=== PATIENT | male | born 1950 | race Hispanic/Latino ===

== ENCOUNTER 2019-01-18 06:47 | Day surgery (SDC) | payer OTHER ==
--- NOTE | 2019-01-17 14:04 | RAD REPORT ---
EXAM DESCRIPTION: RAD - Chest Pa And Lat (2 Views) - 01/17/2019 1:54 pm CLINICAL HISTORY: preop Chest pain. COMPARISON: Chest Single View dated 09/29/2017; Chest Single View dated 09/23/2017; Chest Single Vie w dated 09/25/2016; CHEST SINGLE VIEW dated 09/14/2014 FINDINGS: The lungs are clear. The heart is normal in size. No displaced fractures. Sternotomy wires present. IMPRESSION: No acute or concerning finding suspected.
[2019-01-17 15:06] LABS: Absolute Lymphocytes (CBC) 2.2 K/uL (0.7-4.9); Absolute Monocytes 0.7 K/uL (0.1-1.3); Absolute Neutrophil 5.9 K/uL (1.8-8.0); Basophils % 0.5 % (0-1.3); Eosinophils % 3.4 % (0-4.4); Hematocrit 40.5 % (39.6-49.0); Lymphocytes % 23.8 % (15.3-44.8); MPV 8.7 fL (7.6-11.3); Monocytes % 7.5 % (3.3-12.3); RBC Red Blood Cell Count 4.58 M/uL (4.33-5.43)
[2019-01-17 15:10] LABS: Protime INR 1.07
[2019-01-17 15:17] LABS: Potassium 4.1 mmol/L (3.5-5.1)
--- OUTSIDE RECORDS SUMMARY | 2019-01-18 06:49 | XMS REPORT ---
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 Problem History of TIA (transient ischemic Z86.73 Active attack) Problem Chronic kidney disease, stage 2 N18.2 Active (mild) Problem Erectile dysfunction, unspecified N52.9 Active erectile dysfunction type Problem Sinus disorder J34.9 Active Problem Type 2 diabetes mellitus with E11.65 Active hyperglycemia Assessment History of TIA (transient ischemic Z86.73 Active attack) Assessment Type 2 diabetes mellitus with E11.65 Active hyperglycemia Assessment Hyperlipidemia, unspecified E78.5 Active hyperlipidemia type Assessment Chronic kidney disease (CKD) stage N18.2 Active G2/A1, mildly decreased glomerular filtration rate (GFR) between 60-89 mL/min/1.73 square meter and albuminuria creatinine ratio less than 30 mg/g Assessment half-way current use of insulin Z79.4 Active Assessment Accelerated essential hypertension I10 Active Assessment Cardiovascular system problem I25.10 Active Medications Medication Code Code Instructions Start End Status Dosage System Date Date Plavix [facility] 84898040393 75 MG Orally Active 1 tablet Once a day Lipitor [facility] 56915885824 20 MG Orally Active 1 tablet Once a day Trulicity [facility] 17221622506 0.75mg/0.5ml Active one SQ once a week injection Hydrochlorothiazide [facility] 98407470342 25 MG Orally Active 1 tablet Once a day in the morning Metformin HCl [facility] [address]-19 1000 MG Orally Active 1 tablet Twice a day with a meal Levemir FlexTouch [facility] [address]-28 100 UNIT/ML Active 50 units Subcutaneous at bedtime Niaspan [facility] 24491191567 1000 MG Orally Active 1 tablet Once a day at bedtime Benazepril HCl [facility] 00302658869 40 MG Orally Active 1 tablet Once a day Norvasc [facility] 84602047563 5 MG Orally Active 1 tablet Once a day Jardiance [facility] 44154991913 10 MG Orally Active 1 tablet Once a day Results No Known Results Summary Purpose eClinicalWorks Submission
--- OUTSIDE RECORDS SUMMARY | 2019-01-18 06:49 | XMS REPORT ---
:1950 Author Organization eClinicalWorks Care Team Providers Name Role Phone Abhilash Galvin Provider Role Unavailable Allergies, Adverse Reactions, Alerts Substance Reaction Event Type N.K.D.A. Info Not Available Non Drug Allergy Problems Problem Type Condition Code Onset Dates Condition Status Problem Chronic kidney disease (CKD) stage N18.2 Active G2/A1, mildly decreased glomerular filtration rate (GFR) between 60-89 mL/min/1.73 square meter and albuminuria creatinine ratio less than 30 mg/g Problem Hyperlipidemia, unspecified E78.5 Active hyperlipidemia type Problem Cardiovascular system problem I25.10 Active Problem Essential (primary) hypertension I10 Active Problem [facility] current use of insulin Z79.4 Active Problem History of TIA (transient ischemic Z86.73 Active attack) Problem Chronic kidney disease, stage 2 N18.2 Active (mild) Problem Erectile dysfunction, unspecified N52.9 Active erectile dysfunction type Problem Sinus disorder J34.9 Active Problem Type 2 diabetes mellitus with E11.65 Active hyperglycemia Assessment Type 2 diabetes mellitus with E11.65 Active hyperglycemia Assessment Essential (primary) hypertension I10 Active Assessment History of TIA (transient ischemic Z86.73 Active attack) Assessment Chronic kidney disease, stage 2 N18.2 Active (mild) Assessment Hyperlipidemia, unspecified E78.5 Active hyperlipidemia type Medications Medication Code Code Instructions Start End Status Dosage System Date Date Norvasc [facility] 09150927966 5 MG Orally Inactive 1 tablet Once a day Levemir FlexTouch [facility] 77072208245 100 UNIT/ML Active 50 units Subcutaneous at bedtime Benazepril HCl ND 28416428313 40 MG Orally Active 1 tablet Once a day Aspirin ND 16235542361 81 MG Orally Active 1 tablet Once a day Niaspan [facility] 24324438465 1000 MG Orally Active 1 tablet Once a day at bedtime Metoprolol Succinate ND 91097244772 25 MG Orally Active 1 tablet ER Once a day Plavix [facility] 49220753646 75 MG Active TAKE ONE TABLET BY MOUTH DAILY Hydrochlorothiazide [facility] 66916651324 25 MG Orally Active 1 tablet Once a day in the morning Trulicity [facility] 49732267374 0.75mg/0.5ml Active one SQ once a week injection Metformin HCl [facility] 20931201806 1000 MG Orally Active 1 tablet Twice a day with a meal Jardiance [facility] 55205181511 10 MG Orally Active 1 tablet Once a day Amlodipine Besylate [facility] 85017827133 10 MG Orally Aug Active 1 tablet Once a day 2017 Lipitor [facility] 89136894398 20 MG Orally Active 1 tablet Once a day Results No Known Results Summary Purpose eClinicalWorks Submission
--- OUTSIDE RECORDS SUMMARY | 2019-01-18 06:49 | XMS REPORT ---
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
--- OUTSIDE RECORDS SUMMARY | 2019-01-18 06:49 | XMS REPORT ---
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 88615692325 0.75mg/0.5ml Active one SQ once a week injection Hydrochlorothiazide [facility] 58039231256 25 MG Orally Active 1 tablet Once a day in the morning Norvasc [facility] 04858744265 5 MG Orally Active 1 tablet Once a day Bydureon [facility] 12335957524 2 SC Once a Milad Active 1 Vial 2015 Benazepril HCl [facility] 67469825188 40 MG Orally Active 1 tablet Once a day Plavix [facility] 96140131415 75 MG Orally Active 1 tablet Once a day Levemir FlexTouch [facility] [address]-57 100 UNIT/ML Active 50 units Subcutaneous at bedtime Jardiance [facility] 14647468812 10 MG Orally Active 1 tablet Once a day Metformin HCl [facility] [address]-20 1000 MG Orally Active 1 tablet Twice a day with a meal Niaspan [facility] 65730362374 1000 MG Orally Active 1 tablet Once a day at bedtime Lipitor [facility] 61830767619 20 MG Orally Active 1 tablet Once a day Results No Known Results Summary Purpose eClinicalWorks Submission
--- OUTSIDE RECORDS SUMMARY | 2019-01-18 06:50 | XMS REPORT ---
:1950 Author Organization eClinicalWorks Care Team Providers Name Role Phone Abhilash Galvin Provider Role Unavailable Allergies, Adverse Reactions, Alerts Substance Reaction Event Type N.K.D.A. 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 Problem Influenza A J10.1 Active Problem Essential (primary) hypertension I10 Active Problem Type 2 diabetes mellitus with E11.65 Active hyperglycemia Problem Sinus disorder J34.9 Active Problem History of TIA (transient ischemic Z86.73 Active attack) Assessment History of TIA (transient ischemic Z86.73 Active attack) Assessment [facility] current use of insulin Z79.4 Active Assessment Hyperlipidemia, unspecified E78.5 Active hyperlipidemia type Assessment Type 2 diabetes mellitus with E11.65 Active hyperglycemia Problem Chronic kidney disease (CKD) stage N18.2 Active G2/A1, mildly decreased glomerular filtration rate (GFR) between 60-89 mL/min/1.73 square meter and albuminuria creatinine ratio less than 30 mg/g Assessment Cardiovascular system problem I25.10 Active Problem Cardiovascular system problem I25.10 Active Medications Medication Code Code Instructions Start End Status Dosage System Date Date Jardiance [facility] 88380559343 10 MG Orally Active 1 tablet Once a day Metoprolol Succinate ND 68390942996 25 MG Orally Active 1 tablet ER Once a day Niaspan [facility] 29503075603 1000 MG Orally Active 1 tablet Once a day at bedtime Benazepril HCl [facility] 52458269210 40 MG Orally Active 1 tablet Once a day Lipitor ND 50638656267 20 MG Orally Active 1 tablet Once a day Aspirin ND 42404776973 81 MG Orally Active 1 tablet Once a day Levemir FlexTouch [facility] 37847939369 100 unit/mL Active INJECT 50 UNITS UNDER THE SKIN EVERY NIGHT AT BEDTIME Plavix [facility] 85226669524 75 MG Active TAKE ONE TABLET BY MOUTH DAILY Hydrochlorothiazide [facility] 00230913830 25 MG Orally Active 1 tablet Once a day in the morning Amlodipine Besylate [facility] 86485275424 10 MG Orally May 31, Active 1 tablet Once a day [address] [facility] 17983569838 1000 MG Orally Active 1 tablet Twice a day with a meal Tamiflu [facility] 91787714810 75 MG Orally Nov 22, Active 1 capsule Twice a day 2018 Results No Known Results Summary Purpose eClinicalWorks Submission
--- OUTSIDE RECORDS SUMMARY | 2019-01-18 06:50 | XMS REPORT ---
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 Active Assessment Hyperlipidemia, unspecified E78.5 Active hyperlipidemia type Assessment Essential (primary) hypertension I10 Active Problem Chronic kidney disease (CKD) stage N18.2 Active G2/A1, mildly decreased glomerular filtration rate (GFR) between 60-89 mL/min/1.73 square meter and albuminuria creatinine ratio less than 30 mg/g Assessment Chronic kidney disease, stage 2 N18.2 Active (mild) Problem Cardiovascular system problem I25.10 Active Medications Medication Code Code Instructions Start End Status Dosage System Date Date Jardiance [facility][NOTE 3] 35042586473 10 MG Orally Active 1 tablet Once a day Metoprolol Succinate ND 29789705848 25 MG Orally Active 1 tablet ER Once a day Amlodipine Besylate ND 27061548125 10 MG Orally May 31, Active 1 tablet Once a day 2017 Hydrochlorothiazide [facility][NOTE 3] 03862836170 25 MG Orally Active 1 tablet Once a day in the morning Metformin HCl ND 53648825389 1000 MG Orally Active 1 tablet Twice a day with a meal Plavix [facility][NOTE 3] 85757310765 75 MG Active TAKE ONE TABLET BY MOUTH DAILY Aspirin [facility][NOTE 3] 36730740547 81 MG Orally Active 1 tablet Once a day Tamiflu [facility]NOTE 3] 84282144350 75 MG Orally Nov 22, Active 1 capsule Twice a day 2018 Benazepril HCl [facility][NOTE 3] 74384816914 40 MG Orally Active 1 tablet Once a day Niaspan [facility]NOTE 3] 12261183668 1000 MG Orally Active 1 tablet Once a day at bedtime Lipitor [facility]NOTE 3] 83826709276 20 MG Orally Active 1 tablet Once a day Levemir FlexTouch [facility]NOTE 3] 11017593611 100 unit/mL Active INJECT 50 UNITS UNDER THE SKIN EVERY NIGHT AT BEDTIME Results No Known Results Summary Purpose eClinicalWorks Submission
--- OUTSIDE RECORDS SUMMARY | 2019-01-18 06:50 | XMS REPORT ---
:1950 Author Organization eClinicalWorks Care Team Providers Name Role Phone Dary Camacho Provider Role Unavailable Allergies, Adverse Reactions, Alerts Substance Reaction Event Type N.K.D.A. Info Not Available Non Drug Allergy Problems Problem Type Condition Code Onset Dates Condition Status Problem Cardiovascular system problem I25.10 Active Problem Erectile dysfunction, unspecified N52.9 Active erectile dysfunction type Problem Hyperlipidemia, unspecified E78.5 Active hyperlipidemia type Assessment Influenza A J10.1 Active Problem Chronic kidney disease (CKD) stage N18.2 Active G2/A1, mildly decreased glomerular filtration rate (GFR) between 60-89 mL/min/1.73 square meter and albuminuria creatinine ratio less than 30 mg/g Problem Type 2 diabetes mellitus with E11.65 Active hyperglycemia Problem Chronic kidney disease, stage 2 N18.2 Active (mild) Problem Influenza A J10.1 Active Problem 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.4 Active Problem Sinus disorder J34.9 Active Problem History of TIA (transient ischemic Z86.73 Active attack) Problem Essential (primary) hypertension I10 Active Medications Medication Code Code Instructions Start End Status Dosage System Date Date Metoprolol Succinate [facility] 50445001392 25 MG Orally Active 1 tablet ER Once a day Plavix [facility] 52891521059 75 MG Active TAKE ONE TABLET BY MOUTH DAILY Tamiflu ND 62550778805 75 MG Orally Nov 22, Active 1 capsule Twice a day 2018 Niaspan [facility] 23034547053 1000 MG Orally Active 1 tablet Once a day at bedtime Lipitor ND 73150053184 20 MG Orally Active 1 tablet Once a day Jardiance [facility] 02338710642 10 MG Orally Active 1 tablet Once a day Metformin HCl ND 01084618784 1000 MG Orally Active 1 tablet Twice a day with a meal Levemir FlexTouch [facility] 85579690328 100 unit/mL Active INJECT 50 UNITS UNDER THE SKIN EVERY NIGHT AT BEDTIME Amlodipine Besylate ND 94835848817 10 MG Orally May 31, Active 1 tablet Once a day 2018 Hydrochlorothiazide [facility] 75380798950 25 MG Orally Active 1 tablet Once a day in the morning Benazepril HCl [facility] 70298161402 40 MG Orally Active 1 tablet Once a day Aspirin [facility] 06248165375 81 MG Orally Active 1 tablet Once a day Results Name Result Date Reference Range Unit Abnormality Flag FLU TEST ----A POS [id number] ----B NEG [id number] Summary Purpose eClinicalWorks Submission
[2019-01-18] MEDS ORDERED: HEPA 1000U/500MLS 2,000 UNIT/1,000 ML BAG IV ONE (07:07)
[2019-01-18] MEDS ORDERED: LIDOCAINE 1% MPF 30 ML VIAL ONE (07:07)
[2019-01-18] MEDS ORDERED: NA CHLORIDE 0.9% 500 ML ONE (07:31)
[2019-01-18] MEDS ORDERED: MIDAZOLAM HCL 2 MG/2 ML INJ ONE (08:04)
[2019-01-18] MEDS ORDERED: NA CHLORIDE 0.9% 0 ML ONE (08:05)
[2019-01-18] MEDS ORDERED: ATROPINE SULF 1 MG/10 ML SYR IV ONE (08:05)
[2019-01-18] MEDS ORDERED: FENTANYL CITR 100 MCG/2 ML ONE (08:05)
[2019-01-18 11:11] VITALS: BP 136/65; O2SAT 98
[2019-01-18 11:12] VITALS: TEMP 97.6
--- NOTE | 2019-01-18 20:41 | OP ---
Surgeon: Carl Carrington MD Procedures: Left heart catheterization, coronary angiography, angiography of saphenous vein grafts, left internal mammary artery, and left ventricle. Procedure Findings: The patient has progression of his coronary heart disease since his last heart c atheterization, September 2017. He has occlusion of the LAD, mid. It may not be totally occluded, bu t there may be competitive flow that makes it look occluded. The circumflex is totally occluded. Th ere is RASHEED grade 1 flow to the distal part of the circumflex. The total segment without any contras t and it is more than 3 cm small food. The right coronary artery has an 80% proximal lesion distally . It is totally occluded. There is a graft to the PDA beyond the total occlusion. The graft to the RCA is widely patent. No stenosis. The patient had a stent in his LAD distal to the CHARLES. The LOPEZ A is widely patent, no stenosis, normal flow. Left ventricular ejection fraction normal with no wall motion abnormality. Left ventricular end-diastolic pressure was 17. Procedure In Detail: The patient was brought to the cardiac laboratory assistant in a fasting state, sedated wit h Versed and fentanyl, prepared and draped in usual sterile fashion. Right femoral artery was used. The artery was entered using an 18-gauge needle, cannulated with a short J-wire. 4-Vietnamese sheath wa s placed and flushed. We used the 4-Vietnamese sheath for the rest of the procedure. At the end of the procedure, a sheath shot was done. Adequate anatomy was seen for Angio-Seal closure device, this was deployed successfully. We used a JL4 for the left coronary; JR4 for the right coronary, the sapheno us vein graft, and the internal mammary; angled pigtail for the left ventricle. No aortic valve grad ient on pullback. Complications From The Procedure: None. Estimated Blood Loss: 10 cc. Commercial Teller: Jaime Cazares. GENOVEVA/ADELINE Voice ID: [id number] Report ID: [id number]
== END 2019-01-18 11:13 | disposition home or self-care (01) ==
LOC: CCL 06:47
PROVIDERS: ATTEND Internal Medicine
DX: I25.10 Atherosclerotic heart disease of native coronary artery without angina pectoris (principal); I10 Essential (primary) hypertension; E78.2 Mixed hyperlipidemia; E11.9 Type 2 diabetes mellitus without complications; Z79.4 Long term (current) use of insulin; Z79.82 Long term (current) use of aspirin; Z79.899 Other long term (current) drug therapy; Z95.1 Presence of aortocoronary bypass graft
CPT/HCPCS: 85025; 80048; 36415; 85610; 82962 ×2; 85730; 71046; 93459; C1893; C1760; J2250; J3010; J0583

== ENCOUNTER 2019-07-31 19:59 | Observation (INO) | payer OTHER ==
[2019-07-31 20:55] LABS: Absolute Lymphocytes (CBC) 2.3 K/uL (0.7-4.9); Basophils % 0.6 % (0-1.3); Hematocrit 41.9 % (39.6-49.0); Lymphocytes % 23.4 % (15.3-44.8); RBC Red Blood Cell Count 4.77 M/uL (4.33-5.43)
[2019-07-31 20:56] LABS: Protime INR 1.07
[2019-07-31] MEDS ORDERED: NA CHLORIDE 0.9% 1,000 ML ONE (21:10)
[2019-07-31] MEDS ORDERED: FOLIC ACID 5 MG/ML VIAL ONE (21:11)
[2019-07-31 21:12] LABS: ALT/SGPT 16 U/L (12-78); AST/SGOT 14 U/L (15-37); Albumin 3.9 g/dL (3.4-5.0); Alkaline Phosphatase 76 U/L (45-117); BUN Blood Urea Nitrogen 19 mg/dL (7-18); Bicarbonate 31 mmol/L (21-32); Bilirubin Direct 0.1 mg/dL (0-0.2); Bilirubin Total 0.4 mg/dL (0.2-1.0); Glucose Level 166 mg/dL (74-106); NT PRO-BNP 118 pg/mL (<125); Potassium 3.4 mmol/L (3.5-5.1); Protein, Total 7.8 g/dL (6.4-8.2); Sodium Level 135 mmol/L (136-145); Troponin (Emerg Dept Use Only) < 0.02 ng/mL (0.0-0.045)
[2019-07-31] MEDS ORDERED: ASPIRIN 81 MG CHEWABLE TABLET ONE (21:31)
--- NOTE | 2019-07-31 21:47 | EDPHYS ---
Physician Documentation [facility] Name: Justus Tracey Age: 68 yrs Sex: Male : 1950 Arrival Date: 07/31/2019 Time: 20:02 Bed 8 Private MD: Abhilash Galvin ED Physician Missael Díaz HPI: 07/31 21:24 This 68 yrs old Male presents to ER via Ambulatory with complaints of History gonzalo of stroke, Numbness Of Face, sIDE NUMBNESS. 21:24 The patient's problem is reported as paresthesias, in left upper extremity, in left gonzalo lower extremity, in left side of face. Onset: The symptoms/episode began/occurred yesterday. Duration: The episode is continuous, The episodes are intermittent. Duration: worse than better, now better. Context: the episode(s) was witnessed, by family, symptoms became apparent yesterday. The symptoms are alleviated by nothing. The symptoms are aggravated by nothing. Associated signs and symptoms: The patient has no apparent associated signs or symptoms. Severity of symptoms: At their worst the symptoms were mild in the emergency department the symptoms are unchanged. Patient's baseline: Neuro: alert and fully oriented. Historical: - Allergies: 20:50 No Known Allergies; aa1 - Home Meds: 20:50 metformin 1,000 mg oral TG24 1 tab once daily [Active]; Plavix 75 mg Oral tab 1 tab aa1 once daily [Active]; atorvastatin 80 mg oral tab 1 tab once daily [Active]; ranolazine oral oral 1 tab 2 times per day [Active]; metoprolol tartrate 25 mg Oral tab 1 tab 2 times per day [Active]; benazepril 40 mg oral tab 1 tab once daily [Active]; chlorthalidone 25 mg Oral tab 1 tab once daily [Active]; ozempic 0.25-0.5 0.25 mg weekly [Active]; - PMHx: 20:50 CVA; Diabetes - NIDDM; Hyperlipidemia; Hypertension; aa1 - PSHx: 20:50 Heart stents; CABG; splenectomy; aa1 - Immunization history:: Flu vaccine is not up to date. - Social history:: Smoking status: Patient/guardian denies using tobacco. - Ebola Screening: : No symptoms or risks identified at this time. - Family history:: not pertinent. ROS: 21:24 Constitutional: Negative for fever, chills, and weight loss, Eyes: Negative for injury, gonzalo pain, redness, and discharge, ENT: Negative for injury, pain, and discharge, Neck: Negative for injury, pain, and swelling, Cardiovascular: Negative for chest pain, palpitations, and edema, Respiratory: Negative for shortness of breath, cough, wheezing, and pleuritic chest pain, Abdomen/GI: Negative for abdominal pain, nausea, vomiting, diarrhea, and constipation, Back: Negative for injury and pain, : Negative for injury, bleeding, discharge, and swelling, MS/Extremity: Negative for injury and deformity, Skin: Negative for injury, rash, and discoloration, Psych: Negative for depression, anxiety, suicide ideation, homicidal ideation, and hallucinations, Allergy/Immunology: Negative for hives, rash, and allergies, Endocrine: Negative for neck swelling, polydipsia, polyuria, polyphagia, and marked weight changes, Hematologic/Lymphatic: Negative for swollen nodes, abnormal bleeding, and unusual bruising. 21:24 Neuro: Positive for numbness, tingling, weakness, of the face, left arm and left leg. Exam: 21:24 Constitutional: This is a well developed, well nourished patient who is awake, alert, gonzalo and in no acute distress. Head/Face: Normocephalic, atraumatic. Eyes: Pupils equal round and reactive to light, extra-ocular motions intact. Lids and lashes normal. Conjunctiva and sclera are non-icteric and not injected. Cornea within normal limits. Periorbital areas with no swelling, redness, or edema. ENT: Nares patent. No nasal discharge, no septal abnormalities noted. Tympanic membranes are normal and external auditory canals are clear. Oropharynx with no redness, swelling, or masses, exudates, or evidence of obstruction, uvula midline. Mucous membranes moist. Neck: Trachea midline, no thyromegaly or masses palpated, and no cervical lymphadenopathy. Supple, full range of motion without nuchal rigidity, or vertebral point tenderness. No Meningismus. Chest/axilla: Normal chest wall appearance and motion. Nontender with no deformity. No lesions are appreciated. Cardiovascular: Regular rate and rhythm with a normal S1 and S2. No gallops, murmurs, or rubs. Normal PMI, no JVD. No pulse deficits. Respiratory: Lungs have equal breath sounds bilaterally, clear to auscultation and percussion. No rales, rhonchi or wheezes noted. No increased work of breathing, no retractions or nasal flaring. Abdomen/GI: Soft, non-tender, with normal bowel sounds. No distension or tympany. No guarding or rebound. No evidence of tenderness throughout. Back: No spinal tenderness. No costovertebral tenderness. Full range of motion. Male : Normal genitalia with no discharge or lesions. Skin: Warm, dry with normal turgor. Normal color with no rashes, no lesions, and no evidence of cellulitis. MS/ Extremity: Pulses equal, no cyanosis. Neurovascular intact. Full, normal range of motion. Neuro: Awake and alert, GCS 15, oriented to person, place, time, and situation. Cranial nerves II-XII grossly intact. Motor strength 5/5 in all extremities. Sensory grossly intact. Cerebellar exam normal. Normal gait. Psych: Awake, alert, with orientation to person, place and time. Behavior, mood, and affect are within normal limits. 21:29 Radiologist reports: see report [facility] Vital Signs: 20:25 BP 169 / 69; Pulse 61; Resp 18; Temp 98.0; Pulse Ox 98% on R/A; Weight 81.65 kg; Height aa1 5 ft. 6 in. (167.64 cm); Pain 0/10; 21:50 BP 159 / 69; Pulse 58; Resp 18; Pulse Ox 99% on R/A; ea 22:59 BP 147 / 71; Pulse 55; Resp 18; Pulse Ox 99% on R/A; ea 20:25 Body Mass Index 29.05 (81.65 kg, 167.64 cm) aa NIH Stroke Scale Scores: 21:24 NIHSS Score: 1 gonzalo MDM: 20:50 Patient medically screened. [facility] 21:28 Data reviewed: vital signs, nurses notes, lab test result(s), EKG, radiologic studies, [facility] CT scan, plain films. 07/31 20:34 Order name: Basic Metabolic Panel; Complete Time: 21:24 aa1 07/31 20:34 Order name: CBC with Diff; Complete Time: 21:24 aa1 07/31 20:34 Order name: LFT's; Complete Time: 21:24 aa1 07/31 20:34 Order name: Magnesium; Complete Time: 21:24 07/31 20:34 Order name: NT PRO-BNP; Complete Time: 21:24 07/31 20:34 Order name: PT-INR; Complete Time: 21:24 07/31 20:34 Order name: Troponin (emerg Dept Use Only); Complete Time: 21:24 07/31 20:34 Order name: XRAY Chest (1 view) 07/31 20:34 Order name: EKG; Complete Time: 20:35 07/31 20:34 Order name: CT Head Brain wo Cont 07/31 20:34 Order name: Cardiac monitoring; Complete Time: 20:35 07/31 20:34 Order name: EKG - Nurse/Tech; Complete Time: 20:35 07/31 20:34 Order name: IV Saline Lock; Complete Time: 21:05 [facility] 07/31 20:34 Order name: Labs collected and sent; Complete Time: 20:52 [facility] 07/31 20:34 Order name: O2 Per Protocol; Complete Time: 20:35 07/31 20:34 Order name: O2 Sat Monitoring; Complete Time: 20:35 07/31 20:52 Order name: Urine Dipstick-Ancillary (obtain specimen); Complete Time: 21:50 [facility] 07/31 21:39 Order name: CONS Physician Consult EDMS Administered Medications: 21:14 Drug: NS 0.9% 1000 ml Route: IV; Rate: 1 bolus; Site: right antecubital; ca1 22:00 Follow up: Response: No adverse reaction; IV Intake: 1000ml ea 21:14 Drug: foLIC Acid 1 mg Route: IVPB; Site: right antecubital; ca1 22:00 Follow up: IV Status: Completed infusion ea 21:33 Drug: Aspirin Chewable Tablet 81 mg Route: PO; ca1 21:50 Follow up: Response: No adverse reaction ca1 22:32 Drug: Potassium Effervescent Tablet 25 mEq Route: PO; wh 23:20 Follow up: Response: No adverse reaction ea Disposition: 07/31/19 21:46 Hospitalization ordered by Abhilash Galvin for Inpatient Admission. Preliminary diagnosis are Cerebral infarction - /TIA, Type 2 diabetes mellitus, Essential (primary) hypertension, Hypokalemia. - Bed requested for Telemetry/MedSurg (Inpatient). - Status is Inpatient Admission. ea - Condition is Stable. - Problem is new. - Symptoms have improved. UTI on Admission? No NIH Stroke Scale - NIH Stroke Score Date: 07/31/2019 Time: 21:24 Total Score = 1 1a. Level of Consciousness (LOC) - 0(Alert) 1b. Level of Consciousness (LOC) (Year \T\ Age) - 0(Both) 1c. LOC Commands (Open \T\ Closes Eyes/Pipe Line Maintenance Supervisor) - 0(Both) 2. Best Gaze (Lateral Gaze Paresis) - 0(Normal) 3. Visual Field Loss - 0(No visual loss) 4. Facial Palsy - 0(Normal) 5a. Left Arm: Motor (10-second hold) - 0(No drift) 5b. Right Arm: Motor (10-second hold) - 0(No drift) 6a. Left Leg: Motor (5-second hold - always test supine) - 0(No drift) 6b. Right Leg: Motor (5-second hold - always test supine) - 0(No drift) 7. Limb Ataxia (finger/nose \T\ heel/berry - test with eyes open) - 0(Absent) 8. Sensory Loss (pinprick arms/legs/face) - 1(Mild to moderate loss) 9. Best Language: Aphasia (description/naming/reading) - 0(No aphasia) 10. Dysarthria (speech clarity - read or repeat words) - 0(Normal) 11. Extinction and Inattention (visual/tactile/auditory/spatial/personal) - 0(No abnormality) Initials: gonzalo Signatures: Dispatcher [employer] EDMS Christine Barros RN RN aa1 Missael Díaz MD MD cha Garcia, Cindy RN RN cg Bettie Madera RN RN ea Habalo, Winsy wh Acob, Cheryl RN RN ca1 Corrections: (The following items were deleted from the chart) 21:49 21:46 Hospitalization Ordered by Abhilash Galvin MD for Observation. Preliminary cg diagnosis is Cerebral infarction - /TIA; Type 2 diabetes mellitus; Essential (primary) hypertension. Bed requested for Telemetry/MedSurg (observation). Status is Observation. Condition is Stable. Problem is new. Symptoms have improved. UTI on Admission? No. gonzalo 21:50 21:49 07/31/2019 21:46 Hospitalization Ordered by Abhilash Galvin MD for gonzalo Observation. Preliminary diagnosis is Cerebral infarction - /TIA; Type 2 diabetes mellitus; Essential (primary) hypertension. Bed requested for Telemetry/MedSurg (observation). Status is Observation. Condition is Stable. Problem is new. Symptoms have improved. UTI on Admission? No. 22:16 21:50 07/31/2019 21:46 Hospitalization Ordered by Abhilash Galvin MD for Inpatient cg Admission. Preliminary diagnosis is Cerebral infarction - /TIA; Type 2 diabetes mellitus; Essential (primary) hypertension. Bed requested for Telemetry/MedSurg (Inpatient). Status is Inpatient Admission. Condition is Stable. Problem is new. Symptoms have improved. UTI on Admission? No. gonzalo 22:28 22:16 07/31/2019 21:46 Hospitalization Ordered by Abhilash Galvin MD for Inpatient gonzalo Admission. Preliminary diagnosis is Cerebral infarction - /TIA; Type 2 diabetes mellitus; Essential (primary) hypertension. Bed requested for Telemetry/MedSurg (Inpatient). Status is Inpatient Admission. Condition is Stable. Problem is new. Symptoms have improved. UTI on Admission? No. 23:19 22:28 07/31/2019 21:46 Hospitalization Ordered by Abhilash Galvin MD for Inpatient ea Admission. Preliminary diagnosis is Cerebral infarction - /TIA; Type 2 diabetes mellitus; Essential (primary) hypertension; Hypokalemia. Bed requested for Telemetry/MedSurg (Inpatient). Status is Inpatient Admission. Condition is Stable. Problem is new. Symptoms have improved. UTI on Admission? No. gonzalo
--- NOTE | 2019-07-31 21:47 | ER ---
Nurse's Notes [facility] Name: Justus Tracey Age: 68 yrs Sex: Male : 1950 Arrival Date: 07/31/2019 Time: 20:02 Bed 8 Private MD: Abhilash Galvin Diagnosis: Cerebral infarction-/TIA;Type 2 diabetes mellitus;Essential (primary) hypertension;Hypokalemia Presentation: 07/31 20:25 Presenting complaint: Patient states: he has a hx of multiple CVAs and thinks he might aa1 be having another one. States, "It started yesterday and I just can't seem to shake it this time." Reports slurred speech and numbness in L arm and L leg which began while riding in a vehicle yesterday at 1500. Transition of care: patient was not received from another setting of care. Onset of symptoms was July 30, 2019 at 15:00. Risk Assessment: Do you want to hurt yourself or someone else? Patient reports no desire to harm self or others. Initial Sepsis Screen: Does the patient meet any 2 criteria? No. Patient's initial sepsis screen is negative. Does the patient have a suspected source of infection? No. Patient's initial sepsis screen is negative. Care prior to arrival: None. 20:25 Method Of Arrival: Ambulatory aa1 20:25 Acuity: ELA 2 aa1 Triage Assessment: 20:25 General: Appears in no apparent distress. comfortable, Behavior is calm, cooperative, aa1 appropriate for age. Pain: Denies pain. Historical: - Allergies: 20:50 No Known Allergies; aa1 - Home Meds: 20:50 metformin 1,000 mg oral TG24 1 tab once daily [Active]; Plavix 75 mg Oral tab 1 tab aa1 once daily [Active]; atorvastatin 80 mg oral tab 1 tab once daily [Active]; ranolazine oral oral 1 tab 2 times per day [Active]; metoprolol tartrate 25 mg Oral tab 1 tab 2 times per day [Active]; benazepril 40 mg oral tab 1 tab once daily [Active]; chlorthalidone 25 mg Oral tab 1 tab once daily [Active]; ozempic 0.25-0.5 0.25 mg weekly [Active]; - PMHx: 20:50 CVA; Diabetes - NIDDM; Hyperlipidemia; Hypertension; aa1 - PSHx: 20:50 Heart stents; CABG; splenectomy; aa1 - Immunization history:: Flu vaccine is not up to date. - Social history:: Smoking status: Patient/guardian denies using tobacco. - Ebola Screening: : No symptoms or risks identified at this time. - Family history:: not pertinent. Screenin:00 The patient has not been NPO before screening. The patient is alert, able to follow ea commands. The patient does not exhibit slurred or garbled speech The patient is not exhibiting difficulty speaking. The patient does not exhibit difficulty understanding words. The patient is able to swallow own secretions with no drooling or need for suction. Patient tolerated one teaspoon of water. No drooling, immediate coughing, gurgling, or clearing of the throat was noted. The patient tolerated 90mL of water. No drooling, immediate coughing, gurgling, or clearing of the throat was noted. The patient passed the bedside swallow screening. Oral medications may be given as ordered. Contact Physician for further diet orders. 21:06 Abuse screen: Denies threats or abuse. Denies injuries from another. Nutritional ca1 screening: No deficits noted. Tuberculosis screening: No symptoms or risk factors identified. Fall Risk IV access (20 points). Assessment: 21:06 General: Appears in no apparent distress. comfortable, Behavior is calm, cooperative, ca1 appropriate for age. Pain: Denies pain. Neuro: Level of Consciousness is awake, alert, obeys commands, Oriented to person, place, time, situation, Appropriate for age Tobacco [place] Measurer are equal bilaterally Moves all extremities. Gait is steady, Speech is normal, Facial symmetry appears normal, Reports numbness in face since yesterday. Cardiovascular: Heart tones S1 S2 present Capillary refill < 3 seconds Patient's skin is warm and dry. Pulses are all present. Rhythm is sinus bradycardia. Respiratory: Airway is patent Respiratory effort is even, unlabored, Respiratory pattern is regular, symmetrical, Breath sounds are clear bilaterally. GI: Abdomen is flat, non-distended, Bowel sounds present X 4 quads. Abd is soft and non tender X 4 quads. : No deficits noted. No signs and/or symptoms were reported regarding the genitourinary system. EENT: No deficits noted. No signs and/or symptoms were reported regarding the EENT system. Derm: Skin is intact, is healthy with good turgor, Skin is pink, warm \\T\\ dry. Musculoskeletal: Circulation, motion, and sensation intact. Capillary refill < 3 seconds, Range of motion: intact in all extremities. 21:50 Reassessment: Patient and/or family updated on plan of care and expected duration. Pain ea level reassessed. Patient is alert, oriented x 3, equal unlabored respirations, skin warm/dry/pink. Vital Signs: 20:25 BP 169 / 69; Pulse 61; Resp 18; Temp 98.0; Pulse Ox 98% on R/A; Weight 81.65 kg; Height aa1 5 ft. 6 in. (167.64 cm); Pain 0/10; 21:50 BP 159 / 69; Pulse 58; Resp 18; Pulse Ox 99% on R/A; ea 22:59 BP 147 / 71; Pulse 55; Resp 18; Pulse Ox 99% on R/A; ea 20:25 Body Mass Index 29.05 (81.65 kg, 167.64 cm) aa1 NIH Stroke Scale Scores: 21:24 NIHSS Score: 1 [facility] ED Course: 20:02 Patient arrived in ED. es 20:03 Abhilash Galvin MD is Private Physician. es 20:25 Arm band placed on right wrist. Patient placed in an exam room, on a stretcher. aa1 20:31 EKG done, by ED staff, reviewed by Tip Dennis MD. mt 20:40 Triage completed. aa1 20:50 Missael Díaz MD is Attending Physician. gonzalo 20:51 Loren Rasmussen RN is Primary Nurse. ca1 20:52 Missed attempt(s): 22 gauge in right forearm. mt 20:57 CT Head Brain wo Cont In Process Unspecified. EDMS 20:59 XRAY Chest (1 view) In Process Unspecified. EDMS 21:00 Missed attempt(s): 22 gauge in right hand. Bleeding controlled, band aid applied, ca1 catheter tip intact. 21:05 Inserted saline lock: 22 gauge in right antecubital area, using aseptic technique. ca1 21:06 No provider procedures requiring assistance completed. ca1 21:06 Patient has correct armband on for positive identification. Placed in gown. Bed in low ca1 position. Call light in reach. Side rails up X 1. industrial safety and health technician on. Pulse ox on. NIBP on. Warm blanket given. 21:30 Abhilash Galvin MD is Hospitalizing Provider. gonzalo 21:50 Inserted. Inserted saline lock: 24 gauge in right hand, using aseptic technique. ea 22:35 Patient admitted, IV remains in place. ea Administered Medications: 21:14 Drug: NS 0.9% 1000 ml Route: IV; Rate: 1 bolus; Site: right antecubital; ca1 22:00 Follow up: Response: No adverse reaction; IV Intake: 1000ml ea 21:14 Drug: foLIC Acid 1 mg Route: IVPB; Site: right antecubital; ca1 22:00 Follow up: IV Status: Completed infusion ea 21:33 Drug: Aspirin Chewable Tablet 81 mg Route: PO; ca1 21:50 Follow up: Response: No adverse reaction ca1 22:32 Drug: Potassium Effervescent Tablet 25 mEq Route: PO; wh 23:20 Follow up: Response: No adverse reaction ea Intake: 22:00 IV: 1000ml; Total: 1000ml. ea Outcome: 21:46 Decision to Hospitalize by Provider. gonzalo 22:34 Instructed on the need for admit. ea 23:18 Admitted to Med/surg accompanied by tech, via stretcher, with chart, Report called to ea Receiving nurse on fourth floor 23:18 Condition: stable 23:19 Patient left the ED. ea NIH Stroke Scale - NIH Stroke Score Date: 07/31/2019 Time: 21:24 Total Score = 1 1a. Level of Consciousness (LOC) - 0(Alert) 1b. Level of Consciousness (LOC) (Year \\T\\ Age) - 0(Both) 1c. LOC Commands (Open \\T\\ Closes Eyes/Screen Printing Paster) - 0(Both) 2. Best Gaze (Lateral Gaze Paresis) - 0(Normal) 3. Visual Field Loss - 0(No visual loss) 4. Facial Palsy - 0(Normal) 5a. Left Arm: Motor (10-second hold) - 0(No drift) 5b. Right Arm: Motor (10-second hold) - 0(No drift) 6a. Left Leg: Motor (5-second hold - always test supine) - 0(No drift) 6b. Right Leg: Motor (5-second hold - always test supine) - 0(No drift) 7. Limb Ataxia (finger/nose \\T\\ heel/berry - test with eyes open) - 0(Absent) 8. Sensory Loss (pinprick arms/legs/face) - 1(Mild to moderate loss) 9. Best Language: Aphasia (description/naming/reading) - 0(No aphasia) 10. Dysarthria (speech clarity - read or repeat words) - 0(Normal) 11. Extinction and Inattention (visual/tactile/auditory/spatial/personal) - 0(No abnormality) Initials: gonzalo Signatures: Dispatcher [employer] Christine Duff, RN RN aa1 Missael Díaz MD MD cha Salyer, Archana Martins mt, Elena, RN RN ea Habalo, Winsy wh Acob, Cheryl RN RN ca1
[2019-07-31] MEDS ORDERED: POTASSIUM 25 MEQ EFFERV TAB ONE (22:28)
[2019-07-31] MEDS ORDERED: ONDANSETRON 4 MG/2 ML VIAL IV PRN (23:26)
[2019-07-31] MEDS ORDERED: ACETAMINOPHEN 500 MG TAB PO PRN (23:26)
[2019-07-31] MEDS ORDERED: D50W 25 GM/50 ML SYRINGE/VIAL IV PRN (23:26)
[2019-07-31] MEDS ORDERED: GLUCAGON 1 MG/VIAL IM PRN (23:26)
[2019-08-01] MEDS: NA CHLORIDE 0.9% 1,000 ML IV SCH ×3 (01:19→15:26)
[2019-08-01 01:36] VITALS: BMI 28.0
[2019-08-01 04:08] LABS: Absolute Lymphocytes (CBC) 2.4 K/uL (0.7-4.9); Basophils % 0.7 % (0-1.3); Hematocrit 38.8 % (39.6-49.0); Lymphocytes % 27.6 % (15.3-44.8); MPV 8.3 fL (7.6-11.3)
[2019-08-01 04:23] LABS: Potassium 3.8 mmol/L (3.5-5.1)
[2019-08-01 06:31] VITALS: O2SAT 98
[2019-08-01] MEDS: INSULIN -REGULAR HUMAN 50 UNIT/0.5 ML ML SQ SCH ×3 (07:30→16:30)
--- NOTE | 2019-08-01 07:42 | RAD REPORT ---
EXAM DESCRIPTION: RAD - Chest Single View - 07/31/2019 8:59 pm CLINICAL HISTORY: Stroke protocol chest film COMPARISON: January 2019 TECHNIQUE: AP portable chest image was obtained 2044 hour . FINDINGS: Lung volumes are low. No focal lung parenchymal process. Interstitial pattern is similar t o comparison. Heart and vasculature are normal. No measurable pleural effusion and no pneumothorax. N o acute bony abnormality seen. No acute aortic findings suspected. IMPRESSION: No acute cardiopulmonary process. No significant interval change.
[2019-08-01] MEDS ORDERED: INFLUENZA VACCINE (for 3y+) 0.5 ML DOSE IMVAC ONE (08:00)
[2019-08-01 08:21] LABS: Urine Appearance CLEAR; Urine Bilirubin NEGATIVE (NEG); Urine Blood NEGATIVE (NEG); Urine Color YELLOW; Urine Glucose NEGATIVE (NEG); Urine Protein NEGATIVE (NEG); Urine Urobilinogen 0.2 mg/dL (0.2-1.0); Urine pH 6.5 (5.0-7.0)
[2019-08-01 08:27] LABS: Urine Microscopic Reflex NO UMIC
[2019-08-01] MEDS ORDERED: CHLORTHALIDONE 25 MG TAB PO SCH (09:00)
[2019-08-01] MEDS ORDERED: CLOPIDOGREL 75 MG TABLET PO SCH ×2 (09:00→21:00)
[2019-08-01] MEDS ORDERED: SEMAGLUTIDE 0.25 MG SQ SCH (09:00)
[2019-08-01] MEDS ORDERED: FAMOTIDINE 20 MG/2 ML VIAL IV SCH (09:00)
[2019-08-01] MEDS ORDERED: ASPIRIN EC 81 MG TAB PO SCH (09:00)
--- NOTE | 2019-08-01 09:27 | RAD REPORT ---
EXAM DESCRIPTION: CT - Head Brain Wo Cont - 08/01/2019 2:53 am CLINICAL HISTORY 68 years Male, SLURRED SPEECH TECHNIQUE: 5 mm axial images were obtained along with 3 mm reformatted coronal and sagittal images. This exam was performed according to our departmental dose-optimization program, which includes autom ated exposure control, adjustment of the mA and/or kV according to patient size and/or use of iterati ve reconstruction technique. COMPARISON: September 25, 2016. FINDINGS: No acute abnormal extracerebral fluid collections are demonstrated. The cortical sulci, ventricles, and cisterns are within normal limits. There is a moderately severe chronic periventricular microangiopathic white matter changes. There are no areas of altered attenuation identified to suggest acute hemorrhage, infarction, or mass lesion. The visualized portions of the paranasal sinuses and mastoid air cells are clear. IMPRESSION: 1. No acute intracranial abnormalities. Electronically signed by: Gama Gutierrez MD 07/31/2019 9:11 PM CDT Due to temporary technical issues with the PACS/Fluency reporting system, reports are being signed by the in house radiologist as a courtesy to ensure prompt reporting. The interpreting radiologist is f ully responsible for the content of the report.
--- NOTE | 2019-08-01 11:41 | RAD REPORT ---
EXAM DESCRIPTION: MRI - Brain W/Wo Cont - 08/01/2019 10:48 am CLINICAL HISTORY: Slurred speech and left arm numbness COMPARISON: September 10, [address] TECHNIQUE: Axial, sagittal, and coronal magnetic images of the brain were obtained. 20 cc MultiHance administered intravenously FINDINGS: Moderate signal within periventricular, deep and subcortical white matter probably ischemi c changes secondary to small vessel disease The ventricles are normal in caliber. Diffusion-weighted/ ADC mapping sequences do not demonstrate evidence of an acute infarction. No abnormal enhancement within the brain is seen. An extra-axial fluid collection is not noted. Fluid within the sinuses/mastoids is not seen IMPRESSION: No acute abnormality displayed
--- NOTE | 2019-08-01 11:44 | RAD REPORT ---
EXAM DESCRIPTION: MRI - MRA Head Wo Cont - 08/01/2019 10:48 am CLINICAL HISTORY: Left arm numbness COMPARISON: None. TECHNIQUE: Magnetic resonance angiogram was performed. 3D MIPS reconstruction performed FINDINGS: The anterior cerebral, middle cerebral, posterior cerebral, distal internal carotid and ba silar arteries do not demonstrate a significant stenosis. An aneurysm is not displayed. IMPRESSION: Unremarkable MRA brain.
--- NOTE | 2019-08-01 11:46 | RAD REPORT ---
EXAM DESCRIPTION: MRI - MRA Neck W/Wo Cont - 08/01/2019 10:48 am CLINICAL HISTORY: Left arm numbness COMPARISON: None. TECHNIQUE: Magnetic resonance angiogram of the neck was performed. 18 cc MultiHance was administered intravenously. 3D MIPS reconstruction performed FINDINGS: Bovine aorta Mild plaque within the right carotid bulb estimated result in an approximately 35 percent stenosis. M ild plaque within the common carotid and internal carotid arteries. The vertebral arteries are codominant without visualization of an abnormality. IMPRESSION: Mild plaque within the carotid arteries NASCET criteria used. Mild 0-49% stenosis Moderate 50-69% stenosis Severe 70-99% stenosis
--- NOTE | 2019-08-01 12:09 | EKG ---
Test Date: 2019-08-01 Test Time: 07:47:23 Airconditioning Engineer: MAEGAN MEASUREMENT RESULTS: Intervals: Rate: 56 TN: 224 QRSD: 104 QT: 418 QTc: 403 Vevay: P: 12 TN: 224 QRS: -69 T: 4 INTERPRETIVE STATEMENTS: Sinus bradycardia with 1st degree AV block Left anterior fascicular block Cannot rule out Inferior infarct (masked by fascicular block?), age undetermined Cannot rule out Anterior infarct, age undetermined Abnormal ECG Compared to ECG 07/31/2019 20:28:26 First degree AV block now present Sinus rhythm no longer present Myocardial infarct finding still present Electronically Signed On 08-01-19 12:08:50 CDT by Liang Parnell
--- NOTE | 2019-08-01 12:12 | EKG ---
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
[2019-08-01 12:44] VITALS: BP 159/72; TEMP 96.9
--- NOTE | 2019-08-01 12:51 | ECHO ---
HEIGHT: 5 ft 6 in WEIGHT: 173 lb 11.2 oz DATE OF STUDY: 08/01/[address]: Abhilash Galvin MD 2-DIMENSIONAL: YES M.MODE: YES DOPPLER: YES COLOR FLOW: YES TDS: NO PORTABLE: NO DEFINITY: NO BUBBLE STUDY: NO DIAGNOSIS: CEREBRAL VENTRICULAR ACCIDENT CARDIAC HISTORY: CATHERIZATION: NO SURGERY: YES PROSTHETIC VALVE: NO PACEMAKER: NO MEASUREMENTS (cm) DIASTOLIC (NORMALS) SYSTOLIC (NORMALS) IVSd 0.9 (0.6-1.2) LA Diam 3.7 (1.9-4.0) LVEF 76% LVIDd 4.2 (3.5-5.7) LVIDs 2.3 (2.0-3.5) %FS 45% LVPWd 1.0 (0.6-1.2) Ao Diam 3.3 (2.0-3.7) 2 DIMENSIONAL ASSESSMENT: RIGHT ATRIUM: NORMAL LEFT ATRIUM: NORMAL RIGHT VENTRICLE: NORMAL LEFT VENTRICLE: NORMAL TRICUSPID VALVE: NORMAL MITRAL VALVE: NORMAL PULMONIC VALVE: NORMAL AORTIC VALVE: NORMAL PERICARDIAL EFFUSION: NONE AORTIC ROOT: NORMAL LEFT VENTRICULAR WALL MOTION: NORMAL DOPPLER/COLOR FLOW: NORMAL COMMENTS: NORMAL 2D ECHOCARDIOGRAM WITH DOPPLER. NO VEGETATION. NO THROMBUS. TECHNOLOGIST: Lonnie HEAD
--- NOTE | 2019-08-01 14:05 | P.SSS ---
Patient History Date of Service: 08/01/19 Primary Care Provider: Glenis Reason for admission: tia History of Present Illness: Patient is an office patient of mine. He has been in recently and had fairly stable blood work. The [place] when he started having some numbness on the left side of his face and upper and lower extremities. His is at the bedside and states he also had some slurring of his speech. He came to the ER and had a negative CT. However he is diabetic with a history of Cardiac stent and was admitted for further testing. He had a negative MRI/MRA this morning. The patient had a some mild stenosis of the carotids. No significant stenosis of the vertebral arteries. Have discussed the case with Dr. 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 Allergies No Known Drug Allergies Allergy (Verified 09/26/16 08:46) Unknown No Known Allergies Allergy (Uncoded 09/30/17 00:59) Unknown Home Medications: Metformin HCl 500 mg PO BEDTIME 02/10/12 Aspirin Chewable [Aspirin Chewable*] 81 mg PO DAILY 06/11/13 Clopidogrel Bisulfate [Plavix*] 75 mg PO BEDTIME 06/11/13 Aspirin [Aspir-Low] 81 mg PO DAILY 90 Days #90 tablet. 08/01/19 Atorvastatin Calcium [Lipitor] 80 mg PO Q8HP 1 Days #90 tablet 08/01/19 Benazepril HCl [Lotensin*] 10 mg PO BEDTIME 08/01/19 Chlorthalidone 25 mg PO DAILY 08/01/19 Folic Acid 1 mg PO DAILY #90 tablet 08/01/19 Semaglutide [Ozempic] 0.25 mg SQ EVERY 7TH DAY 08/01/19 - Past Medical/Surgical History Has patient received pneumonia vaccine in the past: Yes Diabetic: Yes -: CVA -: CT -: Hypertension -: Hyperlipidemia -: Diabetes -: TIA -: heart stents -: CABG (2 vessel) -: spleenectomy - Family History Mother -: Hypertension, Diabetes, Stroke - Social History Smoking Status: Never smoker Alcohol use: No CD- Drugs: No Caffeine use: Yes Place of Residence: Home Review of Systems 10-point ROS is otherwise unremarkable Neurological: Numbness (left side, resolved. ) Physical Examination - Vital Signs Temperature: 96.9 F Blood Pressure: 159/72 Pulse: 54 Respirations: 17 Pulse Ox (%): 99 - Physical Exam General: Alert, In no apparent distress HEENT: Atraumatic, PERRLA, Mucous membr. moist/pink, EOMI, Sclerae nonicteric Neck: Supple, 2+ carotid pulse no bruit, No LAD, Without JVD or thyroid abnormality Respiratory: Clear to auscultation bilaterally, Normal air movement Cardiovascular: Regular rate/rhythm, Normal S1 S2 Gastrointestinal: Normal bowel sounds, No tenderness Musculoskeletal: No tenderness Integumentary: No rashes Neurological: Normal gait, Normal speech, Normal strength at 5/5 x4 extr, Normal tone, Normal affect Lymphatics: No axilla or inguinal lymphadenopathy - Studies Laboratory Data (last 24 hrs) 07/31/19 20:44: PT 12.6 H, INR 1.07 07/31/19 20:44: WBC 9.7, Hgb 14.3, Hct 41.9, Plt Count 245 07/31/19 20:44: Sodium 135 L, Potassium 3.4 L, BUN 19 H, Creatinine 1.15, Glucose 166 H, Magnesium 2.0, Total Bilirubin 0.4, AST 14 L, ALT 16, Alkaline Phosphatase 76 - Diagnosis (Problem(s)) (1) TIA (transient ischemic attack) Onset Date: 09/28/16 Current Visit: No Status: Acute Plan: Negative CT and echo. Will discharge him on aspirin and high dose atorvastatin. Have the patient follow up with myself and Dr. Mccann. We can complete the work up then. (2) Diabetes Onset Date: 09/28/16 Current Visit: No Status: Acute Plan: Has been fairly well controlled recently. Will continue home medications. Qualifiers: Diabetes mellitus type: type 2 Diabetes mellitus terminal superintendent insulin use: with terminal superintendent use Diabetes mellitus complication status: without complication Qualified Code(s): E11.9 - Type 2 diabetes mellitus without complications; Z79.4 - assisted (current) use of insulin (3) HTN (hypertension) Onset Date: 09/28/16 Current Visit: No Status: Acute Plan: Slightly elevated. However will treat tia with permissive htn. Not elevated to do significant damage. Most likely will help reprefusion. Qualifiers: Hypertension type: essential hypertension (4) CAD (coronary artery disease) of artery bypass graft Onset Date: 09/28/16 Current Visit: No Status: Acute Plan: Have discussed with Dr. Parnell. He has been stable for the last year. We can have him follow up as an outpatient. Qualifiers: - Disposition Disposition: ROUTINE DISCHARGE Condition: FAIR Diet: ADA Time Spent Managing Pts Care (In Minutes): 60
[2019-08-01] MEDS ORDERED: BENAZEPRIL 10 MG TAB PO SCH (21:00)
--- OUTSIDE RECORDS SUMMARY | 2019-08-20 05:05 | XMS REPORT ---
:1950 Author Organization [employer] Care Team Providers Name Role Phone Abhilash Galvin Provider Role Unavailable Allergies, Adverse Reactions, Alerts Substance Reaction Event Type N.K.D.A. Info Not Available Non Drug Allergy Problems Problem Type Condition Code Onset Dates Condition Status Problem Erectile dysfunction, unspecified N52.9 Active erectile dysfunction type Problem Chronic kidney disease, stage 2 N18.2 Active (mild) Problem Cardiovascular system problem I25.10 Active Problem White coat syndrome with I10 Active hypertension Problem Influenza A J10.1 Active Problem Essential (primary) hypertension I10 Active Problem Sinus disorder J34.9 Active Problem Type 2 diabetes mellitus with E11.65 Active hyperglycemia Problem Stented coronary artery Z95.5 Active Problem shelter current use of insulin Z79.4 Active Assessment roasterman current use of insulin Z79.4 Active Assessment Chronic kidney disease, stage 2 N18.2 Active (mild) Assessment Essential (primary) hypertension I10 Active Assessment Type 2 diabetes mellitus with E11.65 Active hyperglycemia Problem Chronic kidney disease (CKD) stage N18.2 Active G2/A1, mildly decreased glomerular filtration rate (GFR) between 60-89 mL/min/1.73 square meter and albuminuria creatinine ratio less than 30 mg/g Assessment Cardiovascular system problem I25.10 Active Problem History of TIA (transient ischemic Z86.73 Active attack) Assessment Hyperlipidemia, unspecified E78.5 Active hyperlipidemia type Problem Hyperlipidemia, unspecified E78.5 Active hyperlipidemia type Medications Medication Code Code Instructions Start End Status Dosage System Date Date Ozempic (0.25 or 0.5 [facility] 27813913613 2 MG/1.5ML Jul 24January Active 0.25mg MG/DOSE) Subcutaneous 2018 11, for 4 weekly 2020 weeks then full dose of 0.5mg Hydrochlorothiazide ND 03138715873 25 MG Orally Active 1 tablet Once a day in the morning Benazepril HCl [facility] 66974399567 40 MG Orally Active 1 tablet Once a day Chlorthalidone ND 96368951198 25 MG Orally Jul 24, Active 1 tablet Once a day 2019 in the morning with food Ranolazine ND 0 500mg orally Active 1 tab bid Niaspan [facility] 93524303076 1000 MG Orally Active 1 tablet Once a day at bedtime Lipitor [facility] 95292887970 80 MG Orally Active 1 tablet Once a day Metoprolol Succinate [facility] 12712761242 25 MG Orally Active 1 tablet ER Once a day Aspirin [facility] 18114459462 81 MG Orally Active 1 tablet Once a day Metformin HCl [facility] 19329212464 1000 MG Orally Active 1 tablet Twice a day with a meal Jardiance [facility] 77769189712 10 MG Orally Active 1 tablet Once a day Levemir FlexTouch [facility] 51827855996 100 UNIT/ML Active 30 units Subcutaneous at bedtime Plavix [facility] 06833978255 75 MG Active TAKE ONE TABLET BY MOUTH DAILY Amlodipine Besylate [facility] 63374262317 10 MG Orally May 31, Active 1 tablet Once a day 2017 Results No Known Results Summary Purpose [employer]Works 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
== END 2019-08-01 17:13 | disposition home or self-care (01) ==
LOC: ER 19:59 → ERHOLD 21:37 → INTOOBSV 21:37 → 4TH 22:45
PROVIDERS: ADMIT Internal Medicine; ATTEND Internal Medicine
DX: G45.9 Transient cerebral ischemic attack, unspecified (principal); R29.701 NIHSS score 1; I25.810 Atherosclerosis of coronary artery bypass graft(s) without angina pectoris; I10 Essential (primary) hypertension; E78.5 Hyperlipidemia, unspecified; E11.9 Type 2 diabetes mellitus without complications; I25.2 Old myocardial infarction; Z95.1 Presence of aortocoronary bypass graft; Z23 Encounter for immunization
CPT/HCPCS: 96365; 93005 ×2; 93306; 85025 ×2; 80048 ×2; 36415; 83735; 85610; 82947 ×2; 80076; 81003; 84484 ×3; 83880; 70450; 71045; 90471; 70553; 70544; 70549; 92610; 99285; A9577; Q2035; J7030 ×3; G0378 ×2

== ENCOUNTER 2022-05-07 22:14 | Emergency (ER) | payer OTHER ==
--- NOTE | 2022-05-07 22:31 | EDPHYS ---
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 22:26 Mechanism of injury: puncture by catfish. Associated injuries: The patient sustained rn left foot. Onset: The symptoms/episode began/occurred just prior to arrival. The patient has not experienced similar symptoms in the past. The patient has not recently seen a physician. 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 Bleeding stopped with band-aid prior to arrival. No foot pain. . Historical: - Allergies: 22:47 No Known Allergies; tw5 - PMHx: 22:47 CVA; Diabetes - NIDDM; Hyperlipidemia; Hypertension; tw5 - PSHx: 22:47 None; tw5 - Immunization history: Last tetanus immunization: unknown. - Social history:: Smoking status: Patient denies any tobacco usage or history of. - Family history:: not pertinent. - Hospitalizations: : No recent hospitalization is reported. ROS: 22:26 Constitutional: Negative for fever, chills, and weight loss, MS/Extremity: + puncture surgical rn to left foot Exam: 22:26 Constitutional: This is a well developed, well nourished patient who is awake, alert, rn and in no acute distress. Ambulatory to and from triage. MS/ Extremity: Pulses equal, no cyanosis. Neurovascular intact. Full, normal range of motion. small subcentimeter superficial puncture wound dorsum/proximal left foot, no active bleeding, + ragged tissue, no foreign body, wound explored, nothing foreign palpated. Vital Signs: 22:45 BP 166 / 71; Pulse 67; Resp 18; Temp 98.7; Pulse Ox 98% ; Weight 77.11 kg; Height 5 ft. tw5 6 in. (167.64 cm); Pain 5/10; 22:45 Body Mass Index 27.44 (77.11 kg, 167.64 cm) tw5 MDM: 22:19 Patient medically screened. rn 22:29 Differential diagnosis: catfish puncture wound. Data reviewed: vital signs, nurses rn notes, and as a result, I will discharge patient. Counseling: I had a detailed discussion with the patient and/or guardian regarding: the historical points, exam findings, and any diagnostic results supporting the discharge/admit diagnosis, the need for outpatient follow up, to return to the emergency department if symptoms worsen or persist or if there are any questions or concerns that arise at home. Special discussion: I discussed with the patient/guardian in detail that at this point there is no indication for admission to the hospital. It is understood, however, that if the symptoms persist or worsen the patient needs to return immediately for re-evaluation. ED course: No foreign body or material seen or palpated, small wound, no active bleeding, will perform local wound care, and dc home with abx. Return precautions given and understood.. 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
--- NOTE | 2022-05-07 22:50 | ER ---
Nurse's Notes [facility] Name: Justus Tracey Age: 71 yrs Sex: Male : 1950 Arrival Date: 05/07/2022 Time: 22:17 Bed Waiting Private MD: Diagnosis: Puncture wound without foreign body, left foot Presentation: 05/07 22:45 Chief complaint: Patient states: "I was out night fishing and when I caught the catfish tw5 I pulled it up and it swung around and came straight down on my foot. It stabbed me pretty good. We got the carmen out.". Coronavirus screen: Vaccine status: Patient reports being unvaccinated. Ebola Screen: Patient negative for fever greater than or equal to 101.5 degrees Fahrenheit, and additional compatible Ebola Virus Disease symptoms Patient denies exposure to infectious person. Patient denies travel to an Ebola-affected area in the 21 days before illness onset. Initial Sepsis Screen: Does the patient meet any 2 criteria? No. Patient's initial sepsis screen is negative. Does the patient have a suspected source of infection? Yes: Skin breakdown/wound. Risk Assessment: Do you want to hurt yourself or someone else? Patient reports no desire to harm self or others. Onset of symptoms was May 07, 2022 at 21:00. 22:45 Method Of Arrival: Ambulatory tw5 22:45 Acuity: ELA 4 tw5 Historical: - Allergies: 22:47 No Known Allergies; tw5 - PMHx: 22:47 CVA; Diabetes - NIDDM; Hyperlipidemia; Hypertension; tw5 - PSHx: 22:47 None; tw5 - Immunization history: Last tetanus immunization: unknown. - Social history:: Smoking status: Patient denies any tobacco usage or history of. - Family history:: not pertinent. - Hospitalizations: : No recent hospitalization is reported. Screenin:48 Abuse screen: Denies threats or abuse. Denies injuries from another. Nutritional tw5 screening: No deficits noted. Tuberculosis screening: No symptoms or risk factors identified. Fall Risk None identified. Assessment: 22:31 General: Appears uncomfortable, obese, Behavior is calm, cooperative, appropriate for tw5 age. Pain: Complains of pain in suprapubic area and left lower quadrant Pain currently is 4 out of 10 on a pain scale. at worst was 8 out of 10 on a pain scale. Vital Signs: 22:45 BP 166 / 71; Pulse 67; Resp 18; Temp 98.7; Pulse Ox 98% ; Weight 77.11 kg; Height 5 ft. tw5 6 in. (167.64 cm); Pain 5/10; 22:45 Body Mass Index 27.44 (77.11 kg, 167.64 cm) tw5 ED Course: 22:17 Patient arrived in ED. bp1 22:19 Abhishek Pagan MD is Attending Physician. rn 22:36 Triage completed. tw5 22:47 Arm band placed on. tw5 22:48 Patient has correct armband on for positive identification. tw5 22:48 No provider procedures requiring assistance completed. Patient did not have IV access tw5 during this emergency room visit. Wound care: was cleaned with soap and water, dressed with Neosporin, 4X4s. Administered Medications: No medications were administered Medication: 22:48 VIS not applicable for this client. tw5 Outcome: 22:30 Discharge ordered by . rn 22:48 Discharged to home ambulatory. tw5 22:48 Condition: good 22:48 Discharge instructions given to patient, Instructed on discharge instructions, follow up and referral plans. wound care, Demonstrated understanding of instructions, follow-up care, medications, wound care, Prescriptions given X 1. 22:49 Patient left the ED. tw Signatures: Abhishek Pagan MD MD rn [place], Brittany bp1 Wood, Tiffany tw5 Corrections: (The following items were deleted from the chart) 38 22:31 Chief complaint: Patient states: " I was in class and I did a roll, right after I tw5 did the roll I felt a pain, it has only gotten worse." 38 22:31 Care prior to arrival: None. 22:31 Mechanism of Injury: Front roll in a fitness class :38 22:31 Trauma event details: 22:31 Acuity: ELA 3 38 22:31 Method Of Arrival: Ambulatory 38 22:37 Coronavirus screen: Vaccine status: Patient reports receiving the 2nd dose of the covid vaccine. Pfizer 22:37 Ebola Screen: Patient negative for fever greater than or equal to 101.5 degrees tw5 Fahrenheit, and additional compatible Ebola Virus Disease symptoms Patient denies exposure to infectious person. Patient denies travel to an Ebola-affected area in the 21 days before illness onset. tw5 :38 22:37 Initial Sepsis Screen: Does the patient meet any 2 criteria? HR > 90 bpm. Does tw5 the patient have a suspected source of infection? Yes: Acute abdominal pain tw5 :38 22:37 Risk Assessment: Do you want to hurt yourself or someone else? Patient reports no tw5 desire to harm self or others. tw5 :38 22:37 Onset of symptoms was May 07, 2022 at 19:30 tw5 tw5 :38 22:37 BP 124 / 88; Pulse 94bpm; Resp 18bpm; Pulse Ox 97%; Temp 98.7F; 131.54 kg; Height tw5 5 ft. 6 in.; BMI: 46.8; Pain 4/10; tw5
[2022-05-08 02:38] VITALS: BP 166/71; TEMP 98.7; O2SAT 98
== END 2022-05-07 22:49 | disposition home or self-care (01) ==
LOC: ER 22:14
DX: S91.332A Puncture wound without foreign body, left foot, initial encounter (principal); I10 Essential (primary) hypertension; Z86.73 Personal history of transient ischemic attack (TIA), and cerebral infarction without residual deficits
CPT/HCPCS: 99283

== ENCOUNTER 2022-11-27 20:16 | Emergency (ER) | payer OTHER ==
--- OUTSIDE RECORDS SUMMARY | 2022-11-27 20:19 | XMS REPORT | Continuity of Care Document ---
:1950 Author Organization [facility] t Address [address] [place] [address] Dr. Rivera [address] [place] [address] Care Team Providers Name Role Phone ACE HERNANDES Attending Clinician Unavailable Ace Hernandes MD Attending Clinician Only, Adc Test Attending Clinician Unavailable [facility] Main Attending Clinician Unavailable ACE HERNANDES Admitting Clinician Unavailable Ace Hernandes MD Admitting Clinician Payers Payer Name Policy Type Policy Number Effective Date Expiration Date S [facility] [id number] 2020 MEDICARE ADV HMO 00:00:00 Problems Condition Condition Condition Status Onset Resolution Last Treating Co mments Source Name Details Category Date Date Treatment Clinician Date Stroke Stroke Disease Active 2013-10 Univers 0-30 ity of 00:00: [place] [address] Medical Branch Chronic Chronic Problem Active Common kidney kidney Spirit disease disease - [facility]I (CKD) (CKD) St stage stage [facility] G2/A1, G2/A1, Medical formerly [facility] Center decreased decreased glomerular glomerular filtration filtration rate (GFR) rate (GFR) between between 60-89 60-89 mL/min/1.7 mL/min/1.7 3 square 3 square meter and meter and albuminuri albuminuri a a creatinine creatinine ratio less ratio less than 30 than 30 mg/g mg/g Hyperlipid Hyperlipid Problem Active C ommon emia, emia, Spirit unspecifie unspecifie - [facility]I d d hyperlipid hyperlipid [facility] emia type emia type [facility] Cardiovasc Cardiovasc Problem Active C ommon rivka ulteri Spirit system system - [facility] problem problem [facility] Essential Essential Problem Active Com mon (primary) (primary) Spir it hypertensi hypertensi - CHI on on [facility] roasterman roasterman Problem Active Com mon current current Spirit use of use of - CHI insulin insulin [facility] History of History of Problem Active C ommon TIA TIA Spirit (transient (transient - CHI ischemic ischemic St attack) attack) [facility] Erectile Erectile Problem Active Commo n dysfunctio dysfunctio Sp harsh n, n, - [facility]I unspecifie unspecifie St d erectile d erectile [facility] dysfunctio dysfunctio Me dical n type n type Center Sinus Sinus Problem Active Common disorder disorder Spirit - [facility] Type 2 Type 2 Problem Active Common diabetes diabetes Spirit mellitus mellitus - [facility] with with St hyperglyce hyperglyce [facility] Influenza Influenza Problem Active Com mon A A Spirit [facility] Stented Stented Problem Active Common coronary coronary [facility] artery artery - [facility] Allergies, Adverse Reactions, Alerts Allergy Allergy Status Severity Reaction(s) Onset Inactive Treating Comm ents Source Name Type Date Date Clinician NO KNOWN Drug Active Univers ALLERGIE Class ity of S [facility] Social History Social Habit Start Date Stop Date Quantity Comments Source Sex Assigned At [facility] Medical [place] Exposure to Not sure [facility] SARS-CoV-2 (event) Med[facility] Tobacco use and 2020-10-29 2020-10-29 Never used [facility] exposure 00:00:00 00:00:00 Medical [place] Smoking Status Start Date Stop Date Source Unknown if ever smoked [facility] Never smoker [facility] Medications Ordered Filled Start Stop Current Ordering Indication Dosage Frequency Signature Comments Components Source Medication Medication Date Date Medication? Clinician (SIG) Name Name chlorthalid Yes 25mg Take 25 mg Univers one 25 mg 1-20 by mouth ity of tablet 15:24: daily. [address] atorvastati Yes 80mg Take 80 mg Univers n 80 mg 1-20 by mouth ity of tablet 15:24: at [place] [address] bedtime. Medical Branch benazepriL Yes 40mg Take 40 mg U nivers 40 mg 1-20 by mouth ity of tablet 15:24: daily. [address] ranolazine Yes 500mg Take 500 Un rosemarie 500 mg 12 1-20 mg by ity of hr tablet 15:24: mouth 2 [place] [address] (two) Medical times Branch daily. clopidogreL Yes 75mg Take 75 mg Univers (PLAVIX) 75 1-20 by mouth ity of mg tablet 15:24: daily. [address] foLIC acid Yes 1mg Take 1 mg Un rosemarie 1 mg tablet 1-20 by mouth ity of 15:24: daily. [address] insulin Yes inject Univers detemir 1-20 under the ity of (LEVEMIR 15:24: skin. [place] FLEXPEN SC) [address] [place] [address] metFORMIN Yes 1000mg Take 1,000 Univers 1,000 mg 1-20 mg by ity of tablet 15:24: mouth 2 [place] [address] (two) [facility] daily with meals. lactated Yes 1000mL at 42 Univer s ringers IV 1-20 mL/hr, ity of infusion 15:00: 1,000 [place], [place] 1[place]000 mL 00 IV Medical Infusion, [place] CONTINUOUS , Starting Wed10/30/20 at 0900, Until Discontinu ed, Routine, PACU water for Yes PRN, Univers irrigation 1-20 Starting ity o f irrigation 14:48: Wed [place] solution 10/30/20 at Medic al [address] [place] [address] Until Discontinu ed, Routine, Intra-op sodium Yes PRN, Univers chloride 1-20 Starting ity of (NS) 14:48: Wed [place] injection 10/30/20 at [facility] [address] [place] [address] Until Discontinu ed, Routine, Intra-op gentamicin Yes PRN, Univers injection 1-20 Starting ity of 14:47: Wed [place] 10/30/[address] Until Discontinu ed, ALMAZ, Intra-op neomycin-po Yes PRN, [facility] s lymyxin-dex 1-20 Starting ity of amethasone 14:47: Wed [place] (MAXITROL) 10/30/20 at [facility] ical [address] [place] [address] mg/g-10,000 Until unit/g-0.1 Discontinu % ed, ophthalmic Routine, ointment Intra-op Hyaluronida Yes PRN, Univer s se, Human 1-20 Starting ity of Recomb. 14:47: Wed [place] (HYLENEX) 10/30/20 at [facility] injection 0847, Branch Until Discontinu ed, Routine, Intra-op carbachoL Yes PRN, Univers (MIOSTAT) 1-20 Starting ity of 0.01 % 14:46: Wed [place] intraocular 00 10/30/20 at Ne dical injection 0846, Branch Until Discontinu ed, Routine, Intra-op balanced 0 Yes PRN, Univers salt irrig 1-20 Starting ity o f soln comb1 14:46: Wed [place] (BSS PLUS) 10/30/20 at [facility] ical ophthalmic 0846, Branch solution Until 500 mL bag Discontinu ed, Routine, Intra-op eye block 0 Yes PRN, Univers syringe 11 -20 Starting ity o f mL 14:46: Wed [place] 10/30/20 at [facility] 0846, Branch Until Discontinu ed, Intra-op EPINEPHrine Yes PRN, Univer s 1:1,000 (1 1-20 Starting ity o f mg/mL) 14:46: Wed [place] (ADRENALIN) 10/30/20 at Ne dical injection 0846, Branch Until Discontinu ed, Routine, Intra-op dexamethaso Yes PRN, Univer s ne -20 Starting ity of (DECADRON 14:46: Wed [place] PHOSPHATE) 10/30/20 at [facility] ical injection 0846, Branch Until Discontinu ed, Routine, Intra-op DUOVISC Yes PRN, Univers (DUOVISC 1-20 Starting ity of VISCO 14:46: Wed [place] ELASTIC) 3 10/30/20 at [facility] ica %-4 %(0.5 0846, Branch mL) 1 % Until (0.55 mL) Discontinu intraocular ed, injection Routine, Intra-op ceFAZolin Yes PRN, Univers (ANCEF) 100 1-20 Starting ity of mg/ 0.5 mL 14:46: Wed [place] subconjunct 10/30/20 at Ne dical ival 0846, Branch syringe Until Discontinu ed, ALMAZ, Intra-op mydriatic 2021- No .5mL 0.5 mL, Univ ers #5 10-30 Right Eye, ity of ophthalmic 13:15: 13:34 ONCE, 1 Baldev as solution 00 :00 dose, Wed Medica l 0.5 mL 10/30/20 at Branch syringe 0715, Routine lactated 1000mL at 42 Unive rs ringers IV 10-30 01-20 mL/hr, ity of infusion 13:15: 13:13 1,000 mL, Baldev as 1,000 mL 00 :00 IV Medical Infusion, [place] ONCE, 1 dose, 10/30/20 at 0715, Routine, DSU Pre-op Plavix Plavix Yes Cuate 1 tablet Commo n [place] [facility] Immunizations Ordered Filled Immunization Date Status Comments Sourc e Immunization Name Name Influenza Virus 2014-08-11 Completed Universit y of Vaccine Quad IM 3+ 00:00:00 [facility] Influenza Virus 2014-08-11 Completed Universit y of Vaccine Quad IM 3+ 00:00:00 [facility] Influenza Virus 2014-08-11 Completed Universit y of Vaccine Quad IM 3+ 00:00:00 [facility] Vital Signs Vital Name Observation Time Observation Value Comments Source Systolic blood 2020-10-30 15:12:00 169 mm[Hg] Univer sity of pressure [facility] Diastolic blood 2020-10-30 15:12:00 63 mm[Hg] Unive rsity of pressure [facility] Heart rate 2020-10-30 15:12:00 54 /min [facility] Respiratory rate 2020-10-30 15:12:00 16 /min [facility] Oxygen saturation in 2020-10-30 15:12:00 100 /min [facility] Arterial blood by [facility] Pulse oximetry [place] Body temperature 2020-10-30 15:00:00 36.33 Xiao [facility] Body height 2020-10-29 23:30:00 167.6 cm [facility] Body weight 2020-10-29 23:30:00 81.647 kg [facility] BMI 2020-10-29 23:30:00 29.05 kg/m2 [facility] Procedures Procedure Date / Time Performed Performing Clinician Anjel gayle COVID-19 (ID NOW 2020-10-29 14:56:00 [facility] Start End Encounter Admission Attending Care Care Encounter Source Date/Time Date/Time Type Type Clinicians Facility Department ID 2021-08-09 Outpatient Whitney HERNANDES [facility] THELMA [id number] Univers 17:01:17 ACE soriano [facility] 2020-10-30 2020-10-30 Hospital Shabbir [facility] [id number] Univers 07:01:00 09:24:00 Encounter Ace Hemphill Ian [id number] [id number] [id number] [facility] 071 Branch 2020-10-29 2020-10-[address] [facility] [id number] Univers 09:00:00 09:00:00 ACE soriano [facility] 2020-10-29 2020-10-29 Laboratory Only, [facility] Test [facility] [id number] Univers 08:36:26 08:51:26 Only Ace Hernandes Joby Sosa [id number] [id number] [place] [id number] [facility] 353 Branch 2020-10-23 2020-10-23 [employer] Galdino, Flor Lab Main [facility] [id number] Univers 10:38:52 10:53:52 Visit Shabbir Ace Sosa [id number] [id number] Profess[place] [id number] [facility] 353 Branch [facility] 2020-10-23 2020-10-[address] [facility] [id number] Univers 10:15:00 10:15:00 ACE hughesjimenez [facility] 2019-09-25 2019-09-25 Outpatient [place] [id number] Common 11:03:00 11:03:00 [facility] [address] [facility] 2019-08-25 2019-08-25 Outpatient [place] [place] [id number] Common 16:56:00 16:56:00 [facility] [address] [facility] 2019-07-24 2019-07-24 [facility]patient [facility] [id number] Common 09:15:00 09:15:[address] Sp[address] [facility] 2019-07-06 2019-07-06 [facility] [id number] Common 14:15:00 14:15:[address] Sp[address] [facility] 2019-07-03 2019-07-03 [facility] [id number] Common 08:45:00 08:45:[address] Sp[address] [facility] 2019-01-09 2019-01-09 [facility] [id number] Common 09:30:00 09:30:[address] Sp[address] [facility] 2018-11-28 2018-11-28 [facility]patient [facility] [id number] Common 08:30:00 08:30:[address] Sp[address] [facility] 2018-11-22 2018-11-22 [facility]patient [facility] [id number] Common 16:15:00 16:15:00 [facility] 2018-09-19 2018-09-19 [facility] [id number] Common 15:57:00 15:57:[address] Sp[address] [facility] 2018-05-31 2018-05-31 [facility]patient [facility] [id number] Common 13:30:00 13:30:[address] Sp[address] [facility] 2018-04-20 2018-04-20 [facility]patient [facility] [id number] Common 08:30:00 08:30:[address] Sp[address] [facility] 2018-04-20 2018-04-20 Outpatient [facility] [id number] Common 08:19:00 08:19:[address] Sp[address] [facility] Results Test Description Test Time Test Comments Results Result Comments Source COVID-19 (ID NOW RAPID TESTING) 2020-10-29 15:23:00 Test Item Value Reference Range Interpretation Comme nts SARS-CoV-2 Rapid ID NOW (test code Not Detected Not Detected = 81734-1) MARIELA (test code = MARIELA) ID NOW COVID-19 Assay is an isothermal nucleic acid amplification test intended for the qualitative detection of nucleic acid from SARS-CoV-2 viral RNA in nasopharyngeal (DRAG OUT WORKER) specimens. It is used under Emergency Use Authorization (EUA) by FDA. The limit of detection (LOD) of the assay is 125 Genome Equivalents/mL. A positive result is indicative of the presence of SARS-CoV-2 RNA. ?Clinical correlation with patient history and other diagnostic information is necessary to determine patient infection status. A negative (Not Detected) result does not preclude SARS-CoV-2 infection. In patients with clinical symptoms and other tests that are consistent with SARS-CoV-2 infection, negative results should be treated as presumptive negative and a new specimen should be tested with alternative PCR molecular test. Invalid: Please collect a new specimen for repeat patient testing if clinically indicated. Lab Interpretation (test code = Normal 08903-3) [facility] [place]
[2022-11-27 20:39] LABS: Absolute Lymphocytes (CBC) 2.6 K/uL (0.7-4.9); Hematocrit 45.7 % (39.6-49.0); Lymphocytes % 24.8 % (15.3-44.8); MCV 89.3 fL (80-100); MPV 7.5 fL (7.6-11.3); RBC Red Blood Cell Count 5.12 M/uL (4.33-5.43)
[2022-11-27 20:42] LABS: Protime INR 1.01
[2022-11-27 20:54] LABS: Albumin 3.9 g/dL (3.4-5.0); Bilirubin Direct 0.1 mg/dL (0-0.2); Bilirubin Total 0.4 mg/dL (0.2-1.0); Magnesium 2.3 mg/dL (1.6-2.4); Potassium 3.9 mmol/L (3.5-5.1); Protein, Total 8.2 g/dL (6.4-8.2); Troponin High Sensitivity 22.9 pg/mL (<58.9)
--- NOTE | 2022-11-27 20:57 | RAD REPORT ---
EXAM DESCRIPTION: CT - Ct Stroke Brain Wo Cont - 11/27/2022 8:40 pm CLINICAL HISTORY: STROKE ALERT COMPARISON: Head Brain Wo Cont dated 07/31/2019; Head Brain Wo Cont dated 09/25/2016 TECHNIQUE: Noncontrast head CT images ad were obtained without IV contrast. Multiplanar reformats we re generated and reviewed. All CT scans are performed using dose optimization technique as appropriate and may include automated exposure control or mA/KV adjustment according to patient size. FINDINGS: No intracranial hemorrhage, mass, or edema. Midline structures are unremarkable. Normal ventricular caliber for age. [place]-white matter differentiation is preserved, without evidence of acute infarct. No abnormal extra- axial fluid collections. Patchy deep white matter areas of hypoattenuation, stable and nonspecific, suggestive of chronic smal l vessel ischemic changes. Mastoid air cells and visualized portions of the paranasal sinuses are clear. No acute bony findings. IMPRESSION: No evidence of an acute intracranial process.
--- NOTE | 2022-11-27 21:11 | RAD REPORT ---
EXAM DESCRIPTION: CT - Head angio - 11/27/2022 8:47 pm CLINICAL HISTORY: NUMBNESS COMPARISON: Ct Stroke Brain Wo Cont dated 11/27/2022; Head Brain Wo Cont dated 07/31/2019 TECHNIQUE: CT angiography of the head was performed with MIPs, following intravenous administration of 95 mL Isovue 370. All CT scans are performed using dose optimization technique as appropriate and may include automated exposure control or mA/KV adjustment according to patient size. FINDINGS: No evidence of large vessel occlusion. No evidence of aneurysm is detected. No flow-limiti ng stenosis or vascular malformation identified. Moderate bilateral carotid siphon atherosclerotic ca lcifications. Incidentally noted diminutive left A1 segment. Antegrade flow is seen in the vertebral arteries. The vertebral arteries are codominant. The visualized dural venous sinuses are patent. IMPRESSION: No large vessel occlusion or flow-limiting stenosis identified.
--- NOTE | 2022-11-27 21:16 | RAD REPORT ---
EXAM DESCRIPTION: CT - Neck Angio - 11/27/2022 8:47 pm CLINICAL HISTORY: Stroke. Numbness to left L1 arm COMPARISON: Head angio dated 11/27/2022 TECHNIQUE: CT angiography of the neck vessels was performed with MIPs, following intravenous adminis tration of 95 mL Isovue 370. All CT scans are performed using dose optimization technique as appropriate and may include automated exposure control or mA/KV adjustment according to patient size. FINDINGS: A left aortic arch is identified with variant bovine arch configuration of the great vesse ls. No significant flow abnormality is seen of the common carotid bilaterally. [id number] atherosclerotic calcification of the carotid bifurcations. No significant stenosis i s identified involving the cervical segments of both internal carotid arteries. Normal flow is seen within both vertebral arteries. Moderate tortuosity of the proximal left vertebr al artery. 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 IMPRESSION: No significant flow abnormality of the neck vessels is identified. [id number] ath erosclerotic calcifications at the carotid bifurcations.
[2022-11-27] MEDS ORDERED: TENECTEPLASE 50 MG/10 ML VIAL IV ONE (21:18)
--- NOTE | 2022-11-27 21:50 | ER ---
Nurse's Notes [facility] Name: Justus Tracey Age: 72 yrs Sex: Male : 1950 Arrival Date: 11/27/2022 Time: 20:19 Bed 5 Private MD: Diagnosis: Left sided numbness;Possible stroke Presentation: 11/27 20:20 An acute neurological deficit is present. The charge nurse has been notified. Initial bb Sepsis Screen: Does the patient meet any 2 criteria? No. Patient's initial sepsis screen is negative. Does the patient have a suspected source of infection? No. Patient's initial sepsis screen is negative. Risk Assessment: Do you want to hurt yourself or someone else? Patient reports no desire to harm self or others. Onset of symptoms was November 27, 2022 at 18:30. 20:20 Acuity: ELA 1 bb 20:32 Chief complaint: Patient states: he has a history of strokes the last two hours he had bb increased numbness to left jaw and arm he has been having symptoms for several weeks but the last two hours "I am having bad ones". Coronavirus screen: At this time, the client does not indicate any symptoms associated with coronavirus-19. Ebola Screen: No symptoms or risks identified at this time. 20:32 Method Of Arrival: Ambulatory bb Triage Assessment: 20:36 The onset of the patients symptoms was November 27, 2022 at 18:30. bb 20:53 General: Appears in no apparent distress. Behavior is calm, cooperative, appropriate tw5 for age. 23:25 Neuro: Reports numbness. tw5 Stroke Activation: Symptom onset < 3 hours Physician: Stroke Attending; Name: ; Notified At: ; Arrived At: Physician: Chief Stroke Resident; Name: ; Notified At: ; Arrived At: Physician: Stroke Resident; Name: ; Notified At: ; Arrived At: Physician: ED Attending; Name: Edvin; Notified At: 20:30; Arrived At: Physician: ED Resident; Name: ; Notified At: ; Arrived At: Historical: - Allergies: 20:36 No Known Allergies; bb - Social history:: Smoking status: Patient denies any tobacco usage or history of. Screenin:51 [facility] ED Fall Risk Assessment (Adult) Impaired Gait No (0 pts). Abuse screen: Denies tw5 threats or abuse. Denies injuries from another. Nutritional screening: No deficits noted. Tuberculosis screening: No symptoms or risk factors identified. Assessment: 20:31 Patient has been NPO before screening. The patient is alert, and able to follow tw5 commands. The patient does not exhibit slurred or garbled speech. The patient is not exhibiting difficulty speaking. The patient does not exhibit difficulty understanding words. The patient is able to swallow own secretions with no drooling or need for suction. Patient tolerated one teaspoon of water. No drooling, immediate coughing, gurgling, or clearing of the throat was noted. The patient tolerated 90mL of water. No drooling, immediate coughing, gurgling, or clearing of the throat was noted. The patient passed the bedside swallow screening. Oral medications may be given as ordered. Contact Physician for further diet orders. Provider notified of bedside swallow screening results: Tere Pardo MD. 20:51 General: returned by CT with nurse. tw5 20:51 Pain: Denies pain. Neuro: Level of Consciousness is awake, alert, obeys commands, tw5 Oriented to person, place, time, situation. Respiratory: Airway is patent Trachea midline Respiratory effort is even, unlabored. 21:38 General: dagmar- [phone]. tw5 Vital Signs: 20:32 BP 164 / 54; Pulse 64; Resp 16 S; Temp 98; Pulse Ox 97% on R/A; Weight 78 kg (M); bb Height 5 ft. 6 in. (167.64 cm) (R); Pain 0/10; 22:53 tw5 22:53 BP 131 / 57; Pulse 55; Resp 18; Pulse Ox 98% on R/A; tw5 20:32 Body Mass Index 27.75 (78.00 kg, 167.64 cm) bb 22:53 see NIH flow sheet for updated vitals tw5 NIH Stroke Scale Scores: 20:31 NIHSS Score: 0 tw5 ED Course: 20:19 Patient arrived in ED. jj6 20:20 Arm band placed on Patient placed in an exam room, on a stretcher, on rn cardiac, bb on pulse oximetry. Family accompanied patient. 20:27 Tere Pardo MD is Attending Physician. sd2 20:31 Lexie Sanford is Primary Nurse. tw5 20:31 Inserted saline lock: 20 gauge in right antecubital area, using aseptic technique. as6 Blood collected. 20:36 Triage completed. bb 20:41 CT Stroke Brain w/o Contrast In Process Unspecified. EDMS 20:49 CT Head Angio In Process Unspecified. EDMS 20:49 CT Neck Angio In Process Unspecified. EDMS 20:51 Patient has correct armband on for positive identification. quality assurance monitor body on. Pulse tw5 ox on. NIBP on. Door closed. Noise minimized. Lights dimmed. Warm blanket given. Verbal reassurance given. Diet: Patient given water. 20:53 Basic Metabolic Panel Sent. tw5 20:53 Hepatic Function Sent. tw5 20:53 High Sensitivity Troponin Sent. tw5 20:53 Magnesium Sent. tw5 20:53 No provider procedures requiring assistance completed. tw5 21:03 TNK consent. tw5 21:13 Inserted saline lock: 20 gauge in right wrist, using aseptic technique. tw5 21:33 Stroke CXR 1 View In Process Unspecified. EDMS 23:25 Patient transferred, IV remains in place. tw5 Administered Medications: 21:17 Drug: TNK FOR STROKE - Tenecteplase 0.25 mg/kg {Co-Signature: as6 (Charles Devries tw5 RN).} Route: IV; Rate: per protocol; Site: right antecubital; 22:44 Follow up: IV Status: Completed infusion tw5 Medication: 22:53 VIS not applicable for this client. tw5 Point of Care Testing: Blood Glucose: 21:03 Blood Glucose: 200 mg/dL; tw5 Ranges: Outcome: 21:50 ER care complete, transfer ordered by MD. samuel 22:52 Transferred to [facility], Note: report called to [address] room tw5 [id number] 22:52 Condition: stable 22:52 Discharge instructions given to patient, Instructed on the need for transfer, Demonstrated understanding of instructions, follow-up care. 23:25 Patient left the ED. tw5 NIH Stroke Scale - NIH Stroke Score Date: 11/27/2022 Time: 20:31 Total Score = 0 1a. Level of Consciousness (LOC) - 0(Alert) 1b. Level of Consciousness (LOC) (Month \\T\\ Age) - 0(Both) 1c. LOC Commands (Open \\T\\ Closes Eyes/Salon Stylist) - 0(Both) 2. Best Gaze (Lateral Gaze Paresis) - 0(Normal) 3. Visual Field Loss - 0(No visual loss) 4. Facial Palsy - 0(Normal) 5a. Left Arm: Motor (10-second hold) - 0(No drift) 5b. Right Arm: Motor (10-second hold) - 0(No drift) 6a. Left Leg: Motor (5-second hold - always test supine) - 0(No drift) 6b. Right Leg: Motor (5-second hold - always test supine) - 0(No drift) 7. Limb Ataxia (finger/nose \\T\\ heel/berry - test with eyes open) - 0(Absent) 8. Sensory Loss (pinprick arms/legs/face) - 0(Normal) 9. Best Language: Aphasia (description/naming/reading) - 0(No aphasia) 10. Dysarthria (speech clarity - read or repeat words) - 0(Normal) 11. Extinction and Inattention (visual/tactile/auditory/spatial/personal) - 0(No abnormality) Initials: tw5 Signatures: Dispatcher [employer] EDVidhi Vu RN RN bb Wood, Tiffany tw5 Vernell Joelj6 Charles Devries RN RN as6 Tere Pardo MD MD sd2 Charles Devries RN as6
--- NOTE | 2022-11-27 21:51 | EDPHYS ---
Physician Documentation [facility] Name: Justus Tracey Age: 72 yrs Sex: Male : 1950 Arrival Date: 11/27/2022 Time: 20:19 Bed 5 Private MD: ED Physician Tere Pardo HPI: 11/27 21:50 This 72 yrs old Male presents to ER via Ambulatory with complaints of S/S of sd2 Possible Stroke. 21:50 72-year-old male presents with chief complaint of possible stroke. He reports that he sd2 has been experiencing intermittent left-sided numbness for the past couple of days but it acutely got worse approximately 2 hours prior to arrival. He reports numbness to the left lower face and his left arm. He reports ongoing left leg numbness from a prior stroke that is unchanged as well. He denies any significant weakness or speech issues. He has not had any further deficits. He is currently on Plavix from prior strokes. He denies any other significant complaints at this time.. Historical: - Allergies: 20:36 No Known Allergies; bb - Social history:: Smoking status: Patient denies any tobacco usage or history of. ROS: 21:50 Constitutional: Negative for fever, chills, and weight loss, Eyes: Negative for injury, sd2 pain, redness, and discharge, Cardiovascular: Negative for chest pain, palpitations, and edema, Respiratory: Negative for shortness of breath, cough, wheezing. Abdomen/GI: Negative for abdominal pain, nausea, vomiting, diarrhea. MS/Extremity: Negative for injury and deformity, Skin: Negative for injury, rash, and discoloration, Neuro: Negative for headache, positive for numbness Exam: 21:50 Radiologist reports: negative head CT for bleed sd2 21:50 Constitutional: This is a well developed, well nourished patient who is awake, alert, and in no acute distress. Head/Face: Normocephalic, atraumatic. Eyes: EOMI, normal conjunctiva bilaterally Chest/axilla: Normal chest wall appearance and motion. Nontender with no deformity. Cardiovascular: Regular rate and rhythm with a normal S1 and S2. No gallops, murmurs, or rubs. 2+ distal pulses. Respiratory: Lungs have equal breath sounds bilaterally, clear to auscultation and percussion. No rales, rhonchi or wheezes noted. No increased work of breathing, no retractions or nasal flaring. Abdomen/GI: Soft, non-tender, with normal bowel sounds. No guarding or rebound. No evidence of tenderness throughout. Skin: Warm, dry with normal turgor. Normal color with no rashes, no lesions, and no evidence of cellulitis. MS/ Extremity: Pulses equal, no cyanosis. Neurovascular intact. Full, normal range of motion. Ambulatory without difficulty. Neuro: Awake and alert, GCS 15, oriented to person, place, time, and situation. Cranial nerves II-XII grossly intact. Motor strength 5/5 in all extremities. Sensory grossly intact. Cerebellar exam normal. Normal gait. Psych: Awake, alert, with orientation to person, place and time. Behavior, mood, and affect are within normal limits. 21:50 ECG was reviewed by the Attending Physician. Sinus bradycardia, rate 57, sinus arrhythmia with 1st degree AV block, no STEMI criteria Vital Signs: 20:32 BP 164 / 54; Pulse 64; Resp 16 S; Temp 98; Pulse Ox 97% on R/A; Weight 78 kg (M); bb Height 5 ft. 6 in. (167.64 cm) (R); Pain 0/10; 22:53 tw5 22:53 BP 131 / 57; Pulse 55; Resp 18; Pulse Ox 98% on R/A; tw5 20:32 Body Mass Index 27.75 (78.00 kg, 167.64 cm) bb 22:53 see NIH flow sheet for updated vitals tw5 NIH Stroke Scale Scores: 20:31 NIHSS Score: 0 tw5 MDM: 20:27 Patient medically screened. sd2 21:47 Differential diagnosis: Dehydration, electrolyte abnormality, UTI, PNA, anemia among sd2 others. Data reviewed: vital signs, nurses notes, lab test result(s), EKG, radiologic studies. Management of patient was discussed with the following: Black Oxide Operator: Discussed case with Dr. Mccann, Neurology, who recommends TNK. Pt has received twice previously in the past per his report and would like to receive it again. last dose was many years ago. Pt has been consented and denies all contraindications and accepts the risks of the medication. . Discussion of test interpretation with radiology: I had a discussion with radiology regarding a test interpretation. CT findings discussed with radiologist. Historians other than the Patient: Spouse/Significant Other: provides medication history. 22:03 ED course: Discussed case with neuro ICU physician at [facility] who accepts the patient for sd2 transfer at this time. The patient is currently stable for transfer.. 11/27 20:33 Order name: Basic Metabolic Panel; Complete Time: 20:57 sd2 11/27 20:33 Order name: CBC with Diff; Complete Time: 20:57 sd2 11/27 20:33 Order name: Hepatic Function; Complete Time: 20:57 11/27 20:33 Order name: High Sensitivity Troponin; Complete Time: 20:57 2 11/27 20:33 Order name: Magnesium; Complete Time: 20:57 11/27 20:33 Order name: Protime (+inr); Complete Time: 20:57 11/27 20:33 Order name: Ptt, Activated; Complete Time: 20:57 11/27 20:33 Order name: CT Stroke Brain w/o Contrast; Complete Time: 21:10 11/27 20:33 Order name: Stroke CXR 1 View 11/27 20:34 Order name: CT Head Angio 11/27 20:34 Order name: CT Neck Angio 11/27 20:45 Order name: Glucose, Ancillary Testing; Complete Time: 20:57 EDMS 11/27 21:04 Order name: CREATININE WHOLE BLOOD; Complete Time: 21:10 EDMS 11/27 21:40 Order name: SARS RAPID as6 11/27 20:33 Order name: EKG; Complete Time: 20:34 11/27 20:33 Order name: Accucheck; Complete Time: 20:51 11/27 20:33 Order name: Cardiac monitoring; Complete Time: 20:39 11/27 20:33 Order name: EKG - Nurse/Tech; Complete Time: 21:11 11/27 20:33 Order name: IV Saline Lock; Complete Time: 20:39 11/27 20:33 Order name: Labs collected and sent; Complete Time: 20:39 11/27 20:33 Order name: NPO; Complete Time: 20:39 11/27 20:33 Order name: O2 Per Protocol; Complete Time: 20:39 11/27 20:33 Order name: O2 Sat Monitoring; Complete Time: 20:39 sd2 11/27 20:33 Order name: Stroke Swallow Screen; Complete Time: 20:52 sd2 Administered Medications: 21:17 Drug: TNK FOR STROKE - Tenecteplase 0.25 mg/kg {Co-Signature: as6 (Charles Devries tw5 RN).} Route: IV; Rate: per protocol; Site: right antecubital; 22:44 Follow up: IV Status: Completed infusion tw5 Point of Care Testing: Blood Glucose: 21:03 Blood Glucose: 200 mg/dL; tw5 Ranges: Critical Glucose Levels:Adult <50 mg/dl or >400 mg/dl <40 mg/dl or >180 mg/dl Disposition Summary: 11/27/22 21:50 Transfer Ordered Transfer Location: [facility] sd2 Reason: Higher level of care sd2 Condition: Stable sd2 Problem: new sd2 Symptoms: are unchanged sd2 Accepting Physician: [facility] Physician(11/27/22 23:25) tw5 Diagnosis - Left sided numbness sd2 - Possible stroke sd2 Forms: - Medication Reconciliation Form sd2 - SBAR form sd2 Critical care time excluding procedures: 22:04 Critical care time: Bedside Care: 30 minutes, Consultation: 20 minutes, Family sd2 Intervention: 10 minutes. Total time: 60 minutes NIH Stroke Scale - NIH Stroke Score Date: 11/27/2022 Time: 20:31 Total Score = 0 1a. Level of Consciousness (LOC) - 0(Alert) 1b. Level of Consciousness (LOC) (Month \T\ Age) - 0(Both) 1c. LOC Commands (Open \T\ Closes Eyes/Home Care Nurse) - 0(Both) 2. Best Gaze (Lateral Gaze Paresis) - 0(Normal) 3. Visual Field Loss - 0(No visual loss) 4. Facial Palsy - 0(Normal) 5a. Left Arm: Motor (10-second hold) - 0(No drift) 5b. Right Arm: Motor (10-second hold) - 0(No drift) 6a. Left Leg: Motor (5-second hold - always test supine) - 0(No drift) 6b. Right Leg: Motor (5-second hold - always test supine) - 0(No drift) 7. Limb Ataxia (finger/nose \T\ heel/brery - test with eyes open) - 0(Absent) 8. Sensory Loss (pinprick arms/legs/face) - 0(Normal) 9. Best Language: Aphasia (description/naming/reading) - 0(No aphasia) 10. Dysarthria (speech clarity - read or repeat words) - 0(Normal) 11. Extinction and Inattention (visual/tactile/auditory/spatial/personal) - 0(No abnormality) Initials: tw5 Signatures: Dispatcher [employer] Vidhi Silva RN RN Lexie Beckett tw5 Tere Pardo MD MD sd2 Charles Devries RN as6 Corrections: (The following items were deleted from the chart) 23:25 21:50 [facility] Physician sd2 tw5
--- NOTE | 2022-11-27 22:09 | RAD REPORT ---
EXAM DESCRIPTION: Moizt Single View11/27/2022 9:31 pm CLINICAL HISTORY: stroke COMPARISON: Chest Single View dated 07/31/2019; Chest Pa And Lat (2 Views) dated 01/17/2019; Chest Sin gle View dated 09/29/2017; Chest Single View dated 09/23/2017 TECHNIQUE: Portable AP view of the chest. FINDINGS: The lungs are clear. No pneumothorax or effusion. The cardiomediastinal contours are unrem arkable. Sequelae of prior median sternotomy and CABG. IMPRESSION: No acute cardiopulmonary process.
[2022-11-27 22:33] LABS: SARS-CoV-2 Antigen Rapid Res Negative (Negative)
[2022-11-28 00:09] VITALS: TEMP 98
[2022-11-28 00:10] VITALS: BP 131/57; O2SAT 98
--- NOTE | 2022-11-30 12:44 | EKG ---
Test Date: 2022-11-27 Test Time: 21:09:52 Cardiac Cath Technician: TW MEASUREMENT RESULTS: Intervals: Rate: 57 WA: 216 QRSD: 120 QT: 426 QTc: 414 [place]: P: 8 WA: 216 QRS: -68 T: 11 INTERPRETIVE STATEMENTS: Sinus bradycardia with sinus arrhythmia with 1st degree AV block Left anterior fascicular block Cannot rule out Inferior infarct (masked by fascicular block?), age undetermined Possible Anterior infarct, age undetermined Abnormal ECG Compared to ECG 08/01/2019 07:47:23 No significant changes Electronically Signed On 11-30-22 12:37:56 LEAD MINER BLASTING by Romeo Day
== END 2022-11-27 23:25 | disposition short-term general hospital (02) ==
LOC: ER 20:16
DX: R20.0 Anesthesia of skin (principal); R29.810 Facial weakness; Z86.73 Personal history of transient ischemic attack (TIA), and cerebral infarction without residual deficits; Z79.01 Long term (current) use of anticoagulants; Z20.822 Contact with and (suspected) exposure to COVID-19
CPT/HCPCS: 96365; 92977; 85025; 80048; 36415; 83735; 85610; 82565; 82947; 80076; 85730; 84484; 70496; 70498; 70450; 71045; 99291; 99292; 87811; Q9967; J3101; 93005

== ENCOUNTER 2023-02-19 06:30 | Day surgery (SDC) | payer OTHER ==
[2023-02-16 10:13] LABS: Absolute Lymphocytes (CBC) 1.7 K/uL (0.7-4.9); Hematocrit 42.3 % (39.6-49.0); Lymphocytes % 19.6 % (15.3-44.8); MCV 88.6 fL (80-100); MPV 7.8 fL (7.6-11.3); RBC Red Blood Cell Count 4.78 M/uL (4.33-5.43)
[2023-02-16 10:18] LABS: Protime INR 1.02
[2023-02-16 10:22] LABS: Potassium 4.1 mEq/L (3.5-5.1)
--- NOTE | 2023-02-16 15:35 | EKG ---
Test Date: 2023-02-16 Test Time: 09:40:44 Corporate Librarian: RICHARD MEASUREMENT RESULTS: Intervals: Rate: 55 ME: 220 QRSD: 114 QT: 416 QTc: 397 [place]: P: 30 ME: 220 QRS: -68 T: 23 INTERPRETIVE STATEMENTS: Sinus bradycardia with 1st degree AV block Left anterior fascicular block Cannot rule out Anterior infarct, age undetermined Abnormal ECG Compared to ECG 11/27/2022 21:09:52 Sinus arrhythmia no longer present Myocardial infarct finding still present Electronically Signed On 02-16-23 15:34:20 CDT by Liang Parnell
[2023-02-19] MEDS ORDERED: LIDOCAINE 1% 20 ML MDV ONE (06:42)
[2023-02-19] MEDS ORDERED: HEPA 1000U/500MLS 2,000 UNIT/1,000 ML BAG IV ONE (06:42)
[2023-02-19] MEDS ORDERED: NA CHLORIDE 0.9% 500 ML ONE (06:54)
[2023-02-19] MEDS ORDERED: CLOPIDOGREL 75 MG TABLET ONE (07:16)
[2023-02-19] MEDS ORDERED: MIDAZOLAM HCL 2 MG/2 ML INJ ONE (07:16)
[2023-02-19] MEDS ORDERED: FENTANYL CITR 100 MCG/2 ML ONE (07:16)
[2023-02-19] MEDS ORDERED: ATROPINE SULF 1 MG/10 ML SYR IV ONE (07:17)
[2023-02-19] MEDS ORDERED: ASPIRIN 325 MG TAB ONE (07:17)
[2023-02-19] MEDS ORDERED: NITROGLYCERIN/D5W 25 MG/250 ML BTL IV ONE (07:21)
[2023-02-19] MEDS ORDERED: HEPARIN 10,000 UNIT/10 ML VIAL IV ONE (07:21)
[2023-02-19] MEDS ORDERED: NITROGLYCERIN 100 MCG/ML SYR (for cath lab use only) IV ONE (07:21)
[2023-02-19 10:22] VITALS: BP 105/45; O2SAT 95
--- NOTE | 2023-02-19 19:50 | OP ---
Date of Procedure: 02/19/2023 Surgeon: SALVATORE HAYNES Procedures Performed: 1.Selective coronary angiogram with bypass graft study. 2.Left heart catheterization. Indication: Abnormal stress test with chest pain. Access: Right femoral artery 6-American closed with StarClose. Complications: None. Estimated Blood Loss: Bleeding less than 20 mL. Anesthesia: Total sedation time was 45 minutes, used fentanyl and Versed. Description Of Procedure: After risks, benefits, and alternatives were explained, the patient agreed to procedure and signed informed consent. The patient was brought to the cardiac catheterization la boratory and prepped and draped in usual sterile fashion. Then, I accessed right femoral artery usin g micropuncture kit, fluoroscopy, and ultrasound guidance and placed a 6-American [place] sheath and t ook a 6-American JL4 catheter into the aortic root over a J-wire, engaged left main, and took standard views. Then exchanged for 6-American JR4 catheter and engaged the RCA and the SVG to RCA and the CHARLES to LAD and then removed the catheter and sheath and StarClose was used for closure with good hemostas is. Findings: 1.Left main: Large and normal. 2.LAD: Proximal 90% to 99% stenosis with diffusely diseased diagonal branches. 3.Left circumflex: Has ostial MOLDED CANDLES WICKER and acute collaterals from the LAD. The OM gets collaterals from the LAD. 4.RCA: It is diffusely diseased. Ostial to proximal is 80% to 90% and mid 70% stenosis .. 5.PDA has diffuse 50% stenosis. Graft study: 1.Patent CHARLES to LAD. 2.Occluded SVG to RCA. 3.Elevated LVEDP at 15 mmHg. Conclusion: Severe [place] coronary artery disease with patent left internal mammary artery to left a nterior descending. Left anterior descending is giving collaterals to the circ that is 100% occluded , but the right coronary artery is severely diseased with occluded saphenous vein graft to it. Plan: PCI with the shockwave at [place] of the RCA. SR/MODL Voice ID: [id number] Report ID: [id number]
== END 2023-02-19 10:23 | disposition home or self-care (01) ==
LOC: CCL 06:30
PROVIDERS: ATTEND Internal Medicine
DX: I25.10 Atherosclerotic heart disease of native coronary artery without angina pectoris (principal); I25.810 Atherosclerosis of coronary artery bypass graft(s) without angina pectoris; I25.82 Chronic total occlusion of coronary artery; I10 Essential (primary) hypertension; E11.9 Type 2 diabetes mellitus without complications; E78.5 Hyperlipidemia, unspecified; Z95.5 Presence of coronary angioplasty implant and graft
CPT/HCPCS: 93005; 85025; 80048; 36415; 85610; 82947; 85730; 93459; 76937; C1893; Q9966; J2001; J2250; J3010; J7040; J0461

== ENCOUNTER 2024-04-27 12:30 | Day surgery (SDC) | payer OTHER ==
[2024-04-25 13:29] LABS: Absolute Eosinophils 0.3 K/uL (0-0.5); Absolute Neutrophil 7.7 K/uL (1.8-8.0); Basophils % 0.4 % (0-1.3); Eosinophils % 2.8 % (0-4.4); Hematocrit 44.3 % (39.6-49.0); Hemoglobin 14.7 g/dL (13.6-17.9); Lymphocytes % 18.2 % (15.3-44.8); MCH 29.4 pg (27.0-35.0); MCHC 33.1 g/dL (32.0-36.0); MCV 88.9 fL (80-100); MPV 8.3 fL (7.6-11.3); Monocytes % 8.9 % (3.3-12.3); Neutrophils % 69.7 % (41.7-73.7); Platelets 275 thou/uL (152-406); RBC Red Blood Cell Count 4.99 M/uL (4.33-5.43); Red Cell Distribution Width 13.1 % (12.1-15.2)
[2024-04-25 13:35] LABS: PT Prothrombin Time 11.8 SECONDS (9.4-12.5); PTT, Activated Partial Thromb 27.7 SECONDS (24.3-36.9); Protime INR 1.06
--- NOTE | 2024-04-25 13:47 | RAD REPORT ---
EXAM DESCRIPTION: Veronica Bonilla And Loretta (2 Views)04/25/2024 1:20 pm CLINICAL HISTORY: Hypertension/preop for cardiac surgery COMPARISON: 2022 FINDINGS: The lungs appear clear of acute infiltrate. The heart is borderline enlarged. Postsurgica l changes involve the chest IMPRESSION: No acute abnormalities displayed
[2024-04-25 13:51] LABS: Anion Gap 6.4 mEq/L (5.0-15.0); Potassium 4.4 mEq/L (3.5-5.1)
--- NOTE | 2024-04-26 16:41 | EKG ---
Test Date: 2024-04-25 Test Time: 12:54:26 Back Panel Padder: RICHARD MEASUREMENT RESULTS: Intervals: Rate: 69 IN: 206 QRSD: 116 QT: 414 QTc: 443 [place]el: P: 2 IN: 206 QRS: -74 T: 58 INTERPRETIVE STATEMENTS: Normal sinus rhythm Left axis deviation Cannot rule out Anterior infarct, age undetermined Abnormal ECG Compared to ECG 02/16/2023 09:40:44 Left-axis deviation now present Sinus bradycardia no longer present First degree AV block no longer present Left anterior fascicular block no longer present Myocardial infarct finding still present Electronically Signed On 04-26-24 16:37:10 CDT by Romeo Day
[2024-04-27] MEDS: NA CHLORIDE 0.9% 500 ML ONE (13:14)
[2024-04-27] MEDS ORDERED: LIDOCAINE 1% 20 ML MDV ONE (13:38)
[2024-04-27] MEDS ORDERED: NITROGLYCERIN/D5W 50 MG/250 ML BTL IV ONE (13:38)
[2024-04-27] MEDS ORDERED: VERAPAMIL HCL 10 MG/4 ML VIAL IV ONE (13:38)
[2024-04-27] MEDS ORDERED: HEPA 1000U/500MLS 2,000 UNIT/1,000 ML BAG IV ONE (13:38)
[2024-04-27] MEDS ORDERED: MIDAZOLAM HCL 2 MG/2 ML INJ ONE (13:38)
[2024-04-27] MEDS ORDERED: FENTANYL CITR 100 MCG/2 ML ONE (13:39)
[2024-04-27] MEDS ORDERED: HEPARIN 5000 UNIT/ML 1 ML VIAL ONE (13:39)
[2024-04-27] MEDS ORDERED: CLOPIDOGREL 75 MG TABLET ONE (13:39)
[2024-04-27] MEDS ORDERED: HEPARIN 10,000 UNIT/10 ML VIAL IV ONE (13:39)
[2024-04-27] MEDS ORDERED: TICAGRELOR 90 MG TABLET PO ONE (13:39)
[2024-04-27] MEDS ORDERED: ASPIRIN 325 MG TAB ONE (13:40)
[2024-04-27 16:45] VITALS: BP 131/57; O2SAT 96
--- NOTE | 2024-04-27 17:12 | OP ---
Date of Procedure: 04/27/2024 Surgeon: SALVATORE HAYNES Procedures Performed: 1.Selective coronary angiogram with bypass graft study. 2.Left heart catheterization. Indication: Chest pain with abnormal stress test. Access: Right common femoral artery 6-Swedish closed with StarClose. Complications: None. Bleeding: Less than 50 mL. Anesthesia: Total sedation time was 1 hour. Description Of Procedure: After risks, benefits, and alternatives were explained, the patient agreed to procedure and signed informed consent. The patient was brought into cardiac catheterization [facility], prepped and draped in the usual sterile fashion. Then, I accessed right common femoral arter y using micropuncture kit, ultrasound guidance, fluoroscopy, placed a 6-Swedish [place] sheath and to ok a 6-Swedish JR4 catheter into aortic root and engaged left main, took standard views and exchanged for 6-Swedish JR4 catheter and then engaged the RCA and then crossed the aortic valve over the wire, m easured the LVEDP. Pullback did not record any gradient. Then engaged the CHARLES, took standard views . The SVG to RCA is known to be occluded and then I removed the catheter and the sheath, and StarClo se was used for closure with good hemostasis. Findings: 1.Left main; large and normal. 2.LAD; ostially 90% and then it becomes 99% to 100% stenosis at the proximal segment. 3.Ramus intermedius; very small with ostial 99%, unchanged. 4.Left circumflex; totally occluded ostially and the OM gets faint collaterals from the LAD. 5.RCA; large and dominant with long ostial to distal stent with 80% ISR. 6.Widely patent CHARLES to LAD. 7.Occluded SVG to RCA, which is known. 8.LVEDP is elevated at 20 mmHg. 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 Recommendation: Shockwave lithotripsy and balloon angioplasty at [place]. SR/MODL Voice ID: [id number] Report ID: [id number]
== END 2024-04-27 16:44 | disposition home or self-care (01) ==
LOC: CCL 12:30
PROVIDERS: ATTEND Internal Medicine
DX: I25.10 Atherosclerotic heart disease of native coronary artery without angina pectoris (principal); I25.810 Atherosclerosis of coronary artery bypass graft(s) without angina pectoris; I25.82 Chronic total occlusion of coronary artery; T82.855A Stenosis of coronary artery stent, initial encounter; I73.9 Peripheral vascular disease, unspecified; I65.23 Occlusion and stenosis of bilateral carotid arteries; I10 Essential (primary) hypertension; E11.9 Type 2 diabetes mellitus without complications; E78.5 Hyperlipidemia, unspecified; Z79.899 Other long term (current) drug therapy; Z79.02 Long term (current) use of antithrombotics/antiplatelets; Z79.82 Long term (current) use of aspirin
CPT/HCPCS: 36415; 71046; 76937; 80048; 82947; 85025; 85610; 85730; 93005; 93458; 93459; 99152; 99153; C1893; J1644; J2001; J2250; J3010; J7040; Q9966